=== PATIENT | male | born 1985 | race Caucasian/White ===

== ENCOUNTER → 2021-11-04 07:20 | Outpatient (BNVA) | payer OTHER, SELFPAY | PROVIDERS: PCP Internal Medicine; Referring Provider Internal Medicine; Visit Provider Physician Assistant | DX: R10.9 Unspecified abdominal pain (principal); R63.4 Abnormal weight loss; R21 Rash and other nonspecific skin eruption; R14.0 Abdominal distension (gaseous) | CPT/HCPCS: 99202 ==

== ENCOUNTER 2021-11-05 14:38 | Outpatient (REF) | payer OTHER, SELFPAY ==
[2021-11-05 14:55] LABS: MANUAL DIFF FLAG NO
[2021-11-05 15:24] LABS: Basophils Percent Auto 0.6 % (0-2); Eosinophils Absolute Auto 0.2 X10*3/uL (0.0-0.4); Hematocrit 46.4 % (42.0-52.0); Hemoglobin 15.9 g/dl (14.0-18.0); Imm Gran Abs Auto 0.01 X10*3/uL (0.00-0.03); Imm Gran Pct Auto 0.2 % (0.0-0.4); Lymphocytes Absolute Auto 1.6 X10*3/uL (1.2-4.9); Mean Corpuscular HGB Conc 34.3 g/dl (31.0-36.0); Mean Corpuscular Hemoglobin 30.2 pg (27.0-33.0); Mean Corpuscular Volume 88.2 fL (80.0-98.0); Mean Platelet Volume 9.7 fL (9.4-12.4); Monocytes Absolute Auto 0.5 X10*3/uL (0.1-1.2); Monocytes Percent Auto 9.9 % (2-11); Neutrophils Absolute Auto 2.9 x10*3/uL (2.0-8.3); Neutrophils Percent Auto 55.3 % (45-73); Platelet Count 275 X10*3/uL (160-400); Red Blood Count 5.26 X10*6/uL (4.60-5.80); Red Cell Distribution Width 12.5 % (11.0-16.0); White Blood Count 5.3 X10*3/uL (4.8-10.8)
[2021-11-05 15:55] LABS: Alanine Aminotransferase 28 U/L (0-40); Alkaline Phosphatase 112 U/L (39-117); Anion Gap 13 (12-20); Aspartate Amino Transferase 21 U/L (5-37); Bilirubin Total 1.1 mg/dL (0.0-1.0); Blood Urea Nitrogen 10 mg/dL (9-16); C Reactive Protein 0.25 mg/dL (< or = 0.50); Calcium 10.5 mg/dL (8.4-10.2); Carbon Dioxide 29 mmol/L (22-29); Chloride 101 mmol/L (96-108); Cholesterol 188 mg/dL; Estimated Glomerular Filt Rate > 60; Glucose Random 95 mg/dL (60-115); HDL Cholesterol 61 mg/dL; LDL Cholesterol Calculated 117 mg/dl; Potassium 4.2 mmol/L (3.3-5.1); Sodium 139 mmol/L (135-145); Total Protein 8.1 g/dL (6.5-8.0); Triglycerides 52 mg/dL
[2021-11-05 16:10] LABS: Thyroid Stimulating Hormone 1.03 uIU/mL (0.32-4.0)
[2021-11-05 16:20] LABS: Erythrocyte Sedimentation Rate 2 MM/HR (0-15); Folate 10.8 ng/mL (> or = 4.0); Vitamin B12 402 pg/mL (200-900)
[2021-11-09 22:47] LABS: Transglutaminase IgA <1.0 U/mL
[2021-11-10 13:36] LABS: Vitamin D 25-OH, D2 <4 ng/mL; Vitamin D 25-OH, D3 10 ng/mL; Vitamin D 25-OH, Total 10 ng/mL (30-100)
[2021-11-10 16:05] LABS: Endomysial IgA Antibody Negative (Negative)
== END 2021-11-05 14:39 | disposition home or self-care (01) ==
LOC: HO.LAB 14:38
PROVIDERS: Absent Provider Physician Assistant; PCP Internal Medicine; Visit Provider Internal Medicine
DX: Z00.00 Encounter for general adult medical examination without abnormal findings (principal); R63.4 Abnormal weight loss; R10.9 Unspecified abdominal pain; R11.0 Nausea; R19.7 Diarrhea, unspecified; K59.09 Other constipation; D64.9 Anemia, unspecified; L20.9 Atopic dermatitis, unspecified
CPT/HCPCS: 36415; 80053; 80061; 82306; 82607; 82746; 84443; 85025; 85652; 86140; 86231; 86364

== ENCOUNTER → 2021-11-23 08:27 | Outpatient (BNVA) | payer OTHER, SELFPAY | PROVIDERS: PCP Internal Medicine; Referring Provider Internal Medicine; Visit Provider Physician Assistant | DX: R14.0 Abdominal distension (gaseous) (principal); E55.9 Vitamin D deficiency, unspecified; L20.9 Atopic dermatitis, unspecified | CPT/HCPCS: 99212 ==

== ENCOUNTER 2022-10-14 08:27 | Outpatient (REF) | payer OTHER, SELFPAY ==
[2022-10-14 08:41] LABS: MANUAL DIFF FLAG NO
[2022-10-14 09:58] LABS: Basophils Absolute Auto 0.1 X10*3/uL (0.0-0.2); Basophils Percent Auto 0.9 % (0-2); Eosinophils Absolute Auto 0.2 X10*3/uL (0.0-0.4); Eosinophils Percent Auto 3.3 % (0-4); Hematocrit 42.4 % (42.0-52.0); Hemoglobin 14.4 g/dl (14.0-18.0); Imm Gran Abs Auto 0.01 X10*3/uL (0.00-0.03); Imm Gran Pct Auto 0.2 % (0.0-0.4); Lymphocytes Absolute Auto 1.8 X10*3/uL (1.2-4.9); Mean Corpuscular Hemoglobin 30.1 pg (27.0-33.0); Mean Corpuscular Volume 88.5 fL (80.0-98.0); Mean Platelet Volume 10.1 fL (9.4-12.4); Monocytes Absolute Auto 0.5 X10*3/uL (0.1-1.2); Monocytes Percent Auto 8.2 % (2-11); Neutrophils Absolute Auto 3.2 x10*3/uL (2.0-8.3); Neutrophils Percent Auto 55.4 % (45-73); Platelet Count 244 X10*3/uL (160-400); Red Blood Count 4.79 X10*6/uL (4.60-5.80); Red Cell Distribution Width 13.1 % (11.0-16.0); White Blood Count 5.7 X10*3/uL (4.8-10.8)
[2022-10-14 10:36] LABS: Alanine Aminotransferase 23 U/L (0-40); Albumin Level 4.7 g/dL (3.5-5.0); Alkaline Phosphatase 91 U/L (39-117); Anion Gap 12 (12-20); Aspartate Amino Transferase 25 U/L (5-37); Bilirubin Total 1.6 mg/dL (0.0-1.0); Blood Urea Nitrogen 17 mg/dL (9-16); Calcium 9.3 mg/dL (8.4-10.2); Carbon Dioxide 29 mmol/L (22-29); Chloride 102 mmol/L (96-108); Cholesterol 200 mg/dL; Estimated Glomerular Filt Rate > 60; Glucose Fasting 101 mg/dL (60-99); HDL Cholesterol 74 mg/dL; LDL Cholesterol Calculated 120 mg/dl; Potassium 4.1 mmol/L (3.3-5.1); Sodium 139 mmol/L (135-145); Total Protein 7.3 g/dL (6.5-8.0); Triglycerides 34 mg/dL
[2022-10-14 10:44] LABS: Thyroid Stimulating Hormone 1.01 uIU/mL (0.32-4.0)
== END 2022-10-14 08:28 | disposition home or self-care (01) ==
LOC: HO.LAB 08:27
PROVIDERS: Visit Provider Internal Medicine
DX: Z00.00 Encounter for general adult medical examination without abnormal findings (principal); R21 Rash and other nonspecific skin eruption; E55.9 Vitamin D deficiency, unspecified; R63.4 Abnormal weight loss
CPT/HCPCS: 36415; 80053; 80061; 82306; 84443; 85025

== ENCOUNTER 2022-11-14 10:07 | Outpatient (REF) | payer OTHER, SELFPAY ==
--- NOTE | ~2022-11-14 | XR_ITS ---
EXAMINATION: XR WRIST, LEFT CLINICAL INFORMATION: Pain COMPARISON: None available. TECHNIQUE: PA, lateral, and oblique views of the left wrist. FINDINGS: The bones and soft tissues are normal. No fracture. Alignment is anatomic with normal joint spaces. No erosions or abnormal soft tissue calcifications. XR/XR wrist LT min 3V IMPRESSION: Normal left wrist.
== END 2022-11-14 10:08 | disposition home or self-care (01) ==
LOC: HO.HOSX 10:07
PROVIDERS: Visit Provider Physician Assistant
DX: G56.01 Carpal tunnel syndrome, right upper limb (principal)
CPT/HCPCS: 73110; 99202

== ENCOUNTER 2023-01-11 08:51 | Outpatient (REF) | payer OTHER, SELFPAY ==
--- NOTE | 2023-01-11 08:45 | EMG_ITS ---
Please see scanned EMG / Nerve Conduction Report. MTDD
== END 2023-01-11 08:52 | disposition home or self-care (01) ==
LOC: HO.NEURO 08:51
PROVIDERS: PCP Internal Medicine; Visit Provider Physician Assistant
DX: G56.01 Carpal tunnel syndrome, right upper limb (principal)
CPT/HCPCS: 95885; 95913

== ENCOUNTER → 2023-01-24 14:58 | Outpatient (BNVA) | payer OTHER, SELFPAY | PROVIDERS: PCP Internal Medicine; Visit Provider Physician Assistant ==

== ENCOUNTER 2023-03-01 15:15 | Outpatient (AMB) | payer OTHER, SELFPAY ==
[2023-03-01 15:22] VITALS: BMI 21.1
--- NOTE | 2023-03-01 15:22 | MHC.OFFVIS ---
Intake Vital Signs 03/01/23 15:22 Height 5 ft 5 in Weight 127 lb BMI 21.1 Intake Visit Reasons: OV-Left wrist injection vs CTR Allergies latex [LATEX] Allergy (Mild, Verified 03/01/23 15:36) Skin irritation citalopram Allergy (Unknown, Verified 03/01/23 15:36) Depression Seasonal Allergies Allergy (Verified 03/01/23 15:36) Respiratory symptoms, runny nose PFSH Medical History Abdominal pain Abdominal pain, generalized Encounter for physical examination Hypovitaminosis D Nausea Weight loss Surgical History History of anal fissures History of shoulder surgery Family History Father Cancer Lung cancer Mother No problems noted. Maternal Grandmother Diabetes Maternal Uncle Diabetes Social History Housing: House Alcohol intake: former Year quit: 2010 Patient Tobacco Use Status: Never used Tobacco e-Cigarette/Vaping Use: Never Used Second Hand Smoke Exposure: No Substance Use Type: Marijuana service: No Current occupational status: employed Cognitive needs: No Hearing needs: No Vision needs: No Physical Exam Vital Signs: BMI result Body Mass Index 21.1 Coding Diagnoses
--- NOTE | 2023-03-01 15:22 | MHC.OFFVIS ---
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 States his right hand goes numbness mainly at night time and this begin about fall 2021. States numbness comes and goes. Left hand doesn't go numb often but has pain shooting up to his elbow. Patient seen by Eufemia Celis who would like patient to be evaluated by Dr. Abreu. Allergies latex [LATEX] Allergy (Mild, Verified 03/01/23 15:36) Skin irritation citalopram Allergy (Unknown, Verified 03/01/23 15:36) Depression Seasonal Allergies Allergy (Verified 03/01/23 15:36) Respiratory symptoms, runny nose HPI OV-Left wrist injection vs CTR HPI Details Roderick is a 37 year old right hand dominant man who presents primarily with complaints of left elbow pain He reports pain in his left elbow, mostly when straightening his elbow from being flexed or when gripping an object. He says his left elbow pain began with wrist pain in 07/2022, but this resolved shortly after wearing a brace. He has some mild intermittent and occasional tingling in his left hand, but this is not bothersome. He has numbness in the median nerve distribution of the right hand, intermittent and frequent throughout the week, worse with activities. 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 [facility] Medical History Abdominal pain Abdominal pain, generalized Encounter for physical examination Hypovitaminosis D Nausea Weight loss Surgical History History of anal fissures History of shoulder surgery Family History Father Cancer Lung cancer Mother No problems noted. Maternal Grandmother Diabetes Maternal Uncle Diabetes Social History Housing: House Alcohol intake: former Year quit: 2011 Patient Tobacco Use Status: Never used Tobacco e-Cigarette/Vaping Use: Never Used Second Hand Smoke Exposure: No Substance Use Type: Marijuana service: No Current occupational status: employed Cognitive needs: No Hearing needs: No Vision needs: No Review of Systems Const All systems reviewed & are unremarkable except as noted in HPI and below Physical Exam Vital Signs: BMI result Body Mass Index 21.1 Const General: cooperative, healthy appearing and no acute distress Orientation/consciousness: patient oriented x3 HEENT Head: Yes normocephalic and Yes atraumatic Eyes EOM: EOMs intact bilaterally Resp Effort & Inspection: normal respiratory effort and able to speak in complete sentences Cardio Jugular venous distension: no JVD Skin General skin exam: turgor normal Rashes: no rashes Neuro General: patient oriented x3 Extrem Other: Evaluation of Upper Extremity: The patient is alert, oriented, and in no acute distress Neuro: Median, Ulnar, Radial nerves motor and sensory intact and sensation is normal to the tips of all digits Vascular: Cap refill brisk ROM: He can make a fist and extend all his digits Skin: No lacerations or abrasions. General: No Ecchymosis. No Erythema or evidence of infection. Tenderness over the extensor origin of the lateral epicondyle Tenderness over the flexor origin of the medial epicondye Pain to lateral epicondyle with resisted wrist extension Pain to medial epicondyle with resisted wrist & finger extension No pain with resisted elbow flexion Biceps tendon not tender, I do not think he has biceps tendinitis Radiographs: 3 views of the left wrist from 11/15/22 were reviewed by me today in clinic. They show no fractures, dislocations, or arthritic changes Nerve Conduction Study: Impression Mild compression palsy of the median nerve at the wrist on the right consistent with early carpal tunnel syndrome. Normal study on the left. Normal EMG of the right C5-T1 innervated muscles. Dr. Obando 01/11/23 Psych Appearance: grossly normal Affect: normal affect Attitude: cooperative Assessment & Plan Assessment & Plan (1) Right carpal tunnel syndrome: Code(s): G56.01 - Carpal tunnel syndrome, right upper limb (2) Medial epicondylitis of left elbow: Code(s): M77.02 - Medial epicondylitis, left elbow (3) Left lateral epicondylitis: Code(s): M77.12 - Lateral epicondylitis, left elbow Plan Assessment & Plan: 1. Left medial epicondylitis 2. Left lateral epicondylitis I educated him about this condition No evidence of biceps tendinitis I discussed treatment options I recommend activity modification and OT I ordered OT hand therapy to work on normalizing function, stretching, and strengthening I discussed activity modification, he should limit or avoid any heavy gripping, lifting, or pulling activities, or activities that cause him pain I explained that this may take several months to fully resolve, and surgery is not a good treatment option 3. Right Carpal tunnel syndrome, early Symptoms intermittent, and almost daily, worse in the mornings I educated him about carpal tunnel syndrome and the risks of delaying treatment I suspect he will need a carpal tunnel release in the future He would like to consider possible operative treatment in the fall He will follow up in ~2-3 months to see how he is doing, and to discuss possible to carpal tunnel release Otherwise he can follow up prn Scribed for Jessica Abreu MD by Denzel Galindo, medical parasitologist, on 03/01/23 at 3:45 PM, EST. Orders: Orders OT Evaluation and Treatment Today M77.02 - Medial epicondylitis, left elbow, M77.12 - Lateral epicondylitis, left elbow Coding Level of Care Code New Pt Level 3 (67818) Diagnoses Right carpal tunnel syndrome G56.01 Medial epicondylitis of left elbow M77.02 Left lateral epicondylitis M77.12
== END 2023-03-01 15:48 | disposition home or self-care (01) ==
PROVIDERS: PCP Internal Medicine; Visit Provider Orthopaedic Surgery
DX: G56.01 Carpal tunnel syndrome, right upper limb (principal); M77.02 Medial epicondylitis, left elbow; M77.12 Lateral epicondylitis, left elbow
CPT/HCPCS: 99213

== ENCOUNTER → 2023-03-01 15:15 | Outpatient (BNVA) | payer OTHER, SELFPAY | PROVIDERS: PCP Internal Medicine; Visit Provider Orthopaedic Surgery | DX: G56.01 Carpal tunnel syndrome, right upper limb (principal); M77.02 Medial epicondylitis, left elbow; M77.12 Lateral epicondylitis, left elbow | CPT/HCPCS: 99212 ==

== ENCOUNTER 2023-04-18 11:06 | Outpatient (AMB) | payer OTHER, SELFPAY ==
[2023-04-18 11:19] VITALS: BP 110/70; PULSE 80; O2SAT 98; BMI 19.7
--- NOTE | 2023-04-18 11:19 | A.OFFPC_ITS ---
Vital Signs 04/18/23 11:19 Height 5 ft 5 in Weight 118 lb 6 oz BMI 19.7 BP 110/70 Blood Pressure Location Lt brachial Position Sitting Pulse 80 Pulse Source Pulse Oximeter Pulse Oximetry (%) 98 Oxygen Delivery Method Room Air Intake Visit Reasons: Chest tightness and pain. Weight lose. Intake Note: Pt is here for chest pain on the right upper side Monday & Monday being the worse day of pain. Also, concern on weight loss. 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 Required: No Accompanied by: Self / Same As Patient Allergies latex [LATEX] Allergy (Mild, Verified 04/18/23 11:41) Skin irritation citalopram Allergy (Unknown, Verified 04/18/23 11:41) Depression Seasonal Allergies Allergy (Verified 04/18/23 11:41) Respiratory symptoms, runny nose Medication List - Last Reconciled 04/18/23 by Sole Pryor MD cetirizine (Wal-Zyr (cetirizine)) 10 mg PO DAILY PRN cholecalciferol (vitamin D3) 50 mcg PO DAILY 90 days Tobacco use date assessed: 10/17/22 Dental Screening Dental Screen Date: 04/18/23 Did you have a dental visit in the last 12 months?: Yes Did you have a dental problem in the last 6 months where you did not have access to dental care?: No Was dental information given to patient?: Patient has dentist HPI HPI Comments History of Present Illness Details This is a 37-year-old male with allergic rhinitis and low vitamin-D that complains of weight loss that has been present for the past few months. Some polydipsia but no polyuria. Also complains of chest wall pain located in the right side of the chest that started about a month ago associated by taking deep breaths but the past week was tender to palpation and constant. Today is slightly better. He denies any previous trauma. Allergic rhinitis stable with antihistamines. On vitamin-D supplements for low vitamin-D. REPLACED BY [facility] Medical History (Updated 04/18/23 @ 12:31 by Sole Pryor MD) Abdominal pain Abdominal pain, generalized Encounter for physical examination Hypovitaminosis D Nausea Weight loss Surgical History History of anal fissures History of shoulder surgery Family History Father Cancer Lung cancer Mother No problems noted. Maternal Grandmother Diabetes Maternal Uncle Diabetes Social History Housing: House Alcohol intake: former Year quit: 2010 Patient Tobacco Use Status: Never used Tobacco e-Cigarette/Vaping Use: Never Used Second Hand Smoke Exposure: No Substance Use Type: Marijuana service: No Current occupational status: employed Cognitive needs: No Hearing needs: No Vision needs: No Questionnaire Thrive Questionnaire Date Thrive assessed: 10/17/22 PATRIA-7 AMB Questionnaire PATRIA-7 Date PATRIA - 7 assessed: 10/17/22 Source: Developed by Drs. Ton Watson, Eulalia De, Bola Burotn and colleagues, with an educational winston from [employer] Review of Systems Const All systems reviewed & are unremarkable except as noted in HPI and below Eyes Reports no additional complaints, Denies change in vision and Denies other visual disturbances Card Denies chest pain at rest, Denies chest pain with activity, Denies edema, Denies irregular heart rhythm, Denies claudication, Denies dyspnea, Denies dyspnea on exertion, Denies orthopnea, Denies paroxysmal nocturnal dyspnea and Denies slow heart rate Resp Denies cough, Denies dyspnea and Denies dyspnea on exertion GI Denies abdominal pain, Denies change in bowel habits, Denies excessive flatus, Denies nausea and Denies vomiting Denies urinary hesitancy, Denies urinary incontinence and Denies urinary urgency Musc Denies abnormal gait, Denies atrophy, Denies deformity and Denies limited range of motion Skin/Breast Denies bleeding lesions, Denies changing lesions and Denies rash Neuro Denies abnormal gait and Denies lack of coordination Physical exam (Primary Care) Vital Signs: Last Vital Signs Pulse 80 04/18/23 11:19 BP 110/70 04/18/23 11:19 Pulse Ox 98 04/18/23 11:19 Oxygen Delivery Method Room Air 04/18/23 11:19 BMI result Body Mass Index 19.7 Tobacco/Smoking Status: Tobacco use Status Tobacco use date assessed 10/17/22 04/18/23 11:24 Patient Tobacco Use Status Never used Tobacco 04/18/23 11:24 e-Cigarette/Vaping Use Never Used 04/18/23 11:24 Thrive Assessment: Date of Thrive Assessment Date Thrive assessed 10/17/22 04/18/23 11:24 Eyes General: appearance normal, both eyes and all related structures Eyelids: Yes eyelids normal Conjunctivae: conjunctivae normal Neck Neck: Yes normal visual inspection and Yes supple Resp Effort & Inspection: normal respiratory effort Auscultation: clear to auscultation bilaterally Cardio Jugular venous distension: no JVD Rate: regular rate Rhythm: regular rhythm Heart sounds: S1 normal heart sound present and S2 normal heart sound present Extrem General: Yes full ROM Assessment and Plan Assessment & Plan (1) Chest wall pain: Code(s): R07.89 - Other chest pain Plan: X-ray of the chest ordered. (2) Hypovitaminosis D: Comment: Continue vitamin supplement repeat D 3 months Code(s): E55.9 - Vitamin D deficiency, unspecified Plan: Continue vitamin-D supplements. (3) Allergic rhinitis: Code(s): J30.9 - Allergic rhinitis, unspecified Plan: Continue antihistamines as needed. (4) Weight loss: Comment: Weight stable however lost 30 lb over the past couple years-weight seems to be stable Code(s): R63.4 - Abnormal weight loss Plan: Labs ordered. Orders: Orders Comprehensive Page. Panel Fast Today R63.4 - Abnormal weight loss Thyroid Stimulating Hormone Today R63.4 - Abnormal weight loss Complete Blood Count Auto Diff Today R63.4 - Abnormal weight loss XR chest 2V Today R07.89 - Other chest pain Coding Level of Care Code Est Pt Level 4 (65036) Diagnoses Chest wall pain R07.89 Hypovitaminosis D E55.9 Allergic rhinitis J30.9 Weight loss R63.4 Time Spent (min) 20
== END 2023-04-18 11:51 | disposition home or self-care (01) ==
PROVIDERS: PCP Internal Medicine; Visit Provider Internal Medicine
DX: R07.89 Other chest pain (principal); E55.9 Vitamin D deficiency, unspecified; J30.9 Allergic rhinitis, unspecified; R63.4 Abnormal weight loss
CPT/HCPCS: 99214

== ENCOUNTER 2023-04-18 11:55 | Outpatient (REF) | payer OTHER, SELFPAY ==
--- NOTE | ~2023-04-18 | XR_ITS ---
EXAMINATION: XR CHEST CLINICAL INFORMATION: Chest pain COMPARISON: Chest radiograph from 06/02 TECHNIQUE: 2 views of the chest were obtained. FINDINGS: No focal consolidation. No pneumothorax. Trachea is midline. Cardiomediastinal silhouette is not enlarged. No large pleural effusion. Osseous structures are intact. Soft tissues are unremarkable. XR/XR chest 2V IMPRESSION: No acute cardiopulmonary process.
== END 2023-04-18 11:56 | disposition home or self-care (01) ==
LOC: HO.XRAY 11:55
PROVIDERS: PCP Internal Medicine; Visit Provider Internal Medicine
DX: R07.89 Other chest pain (principal)
CPT/HCPCS: 71046

== ENCOUNTER 2023-04-19 07:30 | Outpatient (RCR) | payer OTHER, SELFPAY ==
--- NOTE | 2023-03-29 07:57 | MHC.OT.EP ---
[address] [phone] Occupational Therapy Plan of Care Patient Name: Roderick Rodarte Date of Evaluation: 03/29/23 Diagnosis: Left lateral epicondylitis Pain Location: Left lateral elbow > medial elbow Pain free at rest, increases w/ extended gripping/activities Up to 8/10 sharp pain w/ heavy use Very mildly tender to touch Pain Score: 5 Pain Scale Used: Numeric (0 - 10) Aggravating Factors: Extended lifting/gripping Alleviating Factors: Tried biofreeze w/ some relief Assessment: 37 yo male presents w/ left elbow pain primarily with extended gripping, He also reports hx of clicking in left wrist w/ movement and weightbearing, but that has since relieved when wearing nighttime orthosis. He has been seen for B/L hand numbness and EMG shows early carpal tunnel on right, but no significant symptoms currently. On assessment, pain is localized to left elbow, lateral > medial but at times hard to pinpoint and no specific tenderness, some discomfort over dorsal wad. Range is WFL, B/L gross grasp is WFL, but tested w/ elbow extended is significantly decreased on left w/ onset of pain. He has good sense of body mechanics and has made adjustments w/ daily activities and work tasks, I expect he will do well w/ course of OT to address epicondylitis. Frequency and Duration: The patient will be seen 2x/wk for 4 weeks Short Term Goals: Ind w/ HEP Good follow through w/ CFB during daily activities Progress to eccentric exercises Half-Way Goals: Ind w/ progression of strengthening exercises Pt to demo lift and carry 30lb w/ ease Extended gross grasp to 50lb w/ ease Treatment Plan: Therapeutic Exercise Therapeutic Activity Home Exercise Program Splinting Patient Education ADL Training Ultrasound Iontophoresis MHP Cold Packs Soft Tissue Mobilization Kinesiotaping Ionto w/ Dexamethasone Nighttime wrist orthosis Electronically Signed By: Lyn Cade OTR/L Please Sign and return to therapist. Thank you once again for your referral.
--- NOTE | 2023-04-19 09:30 | MHC.OT.DC ---
[address] [phone] F: [phone] Occupational Therapy Discharge Note Patient Name: Roderick Rodarte Provider: Dr Jessica Abreu Diagnosis: Left lateral epicondylitis Date of Evaluation: 03/29/23 Date of Discharge: 04/19/23 Treatments to Date: 4 Discharge Status: Achieved Goals Improved Function Independent with HEP Discharge Summary: Roderick was referred to OT with onset of left latral epicondylitis. He has done very well w/ brief course of OT and has good follow through w/ HEP, counter force brace wear and activity modifications. He reports ease w/ activities and no significant pain or functional limitations noted recently, OT goals met. Electronically Signed By: Lyn Cade OTR/Chance CHT Reviewed/agree with student documentation: Therapist: Please Sign and return to therapist, thank you for your referral.
== END 2023-04-19 09:30 | disposition home or self-care (01) ==
LOC: HO.OT 07:30
PROVIDERS: PCP Internal Medicine; Visit Provider Orthopaedic Surgery
DX: M77.12 Lateral epicondylitis, left elbow (principal); M77.02 Medial epicondylitis, left elbow
CPT/HCPCS: 97033; 97110; 97165

== ENCOUNTER 2023-04-19 08:00 | Outpatient (REF) | payer OTHER, SELFPAY ==
[2023-04-19 08:12] LABS: MANUAL DIFF FLAG NO
[2023-04-19 08:58] LABS: Basophils Absolute Auto 0.1 X10*3/uL (0.0-0.2); Basophils Percent Auto 1.3 % (0-2); Eosinophils Absolute Auto 0.5 X10*3/uL (0.0-0.4); Eosinophils Percent Auto 7.2 % (0-4); Hematocrit 41.4 % (42.0-52.0); Hemoglobin 13.6 g/dl (14.0-18.0); Imm Gran Abs Auto 0.01 X10*3/uL (0.00-0.03); Imm Gran Pct Auto 0.2 % (0.0-0.4); Lymphocytes Absolute Auto 1.6 X10*3/uL (1.2-4.9); Lymphocytes Percent Auto 24.9 % (20-40); Mean Corpuscular HGB Conc 32.9 g/dl (31.0-36.0); Mean Corpuscular Hemoglobin 30.7 pg (27.0-33.0); Mean Corpuscular Volume 93.5 fL (80.0-98.0); Monocytes Absolute Auto 0.6 X10*3/uL (0.1-1.2); Monocytes Percent Auto 9.9 % (2-11); Neutrophils Absolute Auto 3.6 x10*3/uL (2.0-8.3); Neutrophils Percent Auto 56.5 % (45-73); Platelet Count 209 X10*3/uL (160-400); Red Blood Count 4.43 X10*6/uL (4.60-5.80); White Blood Count 6.3 X10*3/uL (4.8-10.8)
[2023-04-19 09:55] LABS: Alanine Aminotransferase 16 U/L (0-40); Albumin Level 4.4 g/dL (3.5-5.0); Alkaline Phosphatase 84 U/L (39-117); Anion Gap 11 (12-20); Aspartate Amino Transferase 22 U/L (5-37); Bilirubin Total 0.7 mg/dL (0.0-1.0); Blood Urea Nitrogen 16 mg/dL (9-16); Calcium 9.8 mg/dL (8.4-10.2); Carbon Dioxide 31 mmol/L (22-29); Chloride 102 mmol/L (96-108); Estimated Glomerular Filt Rate > 60; Glucose Fasting 86 mg/dL (60-99); Sodium 140 mmol/L (135-145); Total Protein 7.2 g/dL (6.5-8.0)
[2023-04-19 09:59] LABS: Thyroid Stimulating Hormone 1.52 uIU/mL (0.32-4.0)
== END 2023-04-19 08:01 | disposition home or self-care (01) ==
LOC: HO.LAB 08:00
PROVIDERS: PCP Internal Medicine; Visit Provider Internal Medicine
DX: R63.4 Abnormal weight loss (principal)
CPT/HCPCS: 36415; 80053; 84443; 85025

== ENCOUNTER 2023-06-13 09:44 | Outpatient (AMB) | payer OTHER, SELFPAY ==
--- NOTE | 2023-06-13 10:16 | A.OFFVIS_ITS ---
Intake Vital Signs 06/13/23 10:19 Height 5 ft 5 in Weight 118 lb BMI 19.6 Intake Visit Reasons: LATERAL/MEDIAL EPICONDYLITIS, L ELBOW Intake Note: Rene 38 yr old male presents today S/P OT for his left lateral and medial elbow epicondylitis. States he was D/C from O.T and was doing but then he felt his pain was returning. He has cont' to do his ROM exercise at home Allergies latex [LATEX] Allergy (Mild, Verified 06/13/23 10:19) Skin irritation citalopram Allergy (Unknown, Verified 06/13/23 10:19) Depression Seasonal Allergies Allergy (Verified 06/13/23 10:19) Respiratory symptoms, runny nose HPI LATERAL/MEDIAL EPICONDYLITIS, L ELBOW HPI Details Roderick is a 38 year old right hand dominant man who returns to discuss his numbness and tingling in his right hand. In regards to his right hand, he says he primarily has numbness when waking up and in the mornings, but he denies any numbness throughout the day and at night. He says his numbness occurs almost every day but he says this improved when wearing his brace. He thinks that if he did not wear a brace he would have numbness every day. Regarding his bilateral medial epicondylitis: He says his pain improved with OT and at-home exercises, and he was discharged from OT. He did notice that after he was discharged from OT he started to get more symptoms about his left elbow. He was unsure if that meant he should go back to OT. 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 [facility] Medical History Abdominal pain Abdominal pain, generalized Encounter for physical examination Hypovitaminosis D Nausea Weight loss Surgical History History of anal fissures History of shoulder surgery Family History Father Cancer Lung cancer Mother No problems noted. Maternal Grandmother Diabetes Maternal Uncle Diabetes Social History Housing: House Alcohol intake: former Year quit: 2010 Patient Tobacco Use Status: Never used Tobacco e-Cigarette/Vaping Use: Never Used Second Hand Smoke Exposure: No Substance Use Type: Marijuana service: No Current occupational status: employed Cognitive needs: No Hearing needs: No Vision needs: No Physical Exam Vital Signs: BMI result Body Mass Index 19.6 Extrem Other: Evaluation of Bilateral Upper Extremity: The patient is alert, oriented, and in no acute distress Neuro: Median, Ulnar, Radial nerves motor and sensory intact and sensation is normal to the tips of all digits today in clinic No thenar or intrinsic wasting Good APB muscle belly firing and good finger cross Vascular: Cap refill brisk ROM: He can make a fist and extend all his digits When I asked him where he was still hurting he fairly broadly demonstrated over the dorsal lateral aspect of his left elbow. Then he noted perhaps some discomfort over his biceps insertion and may be medially. In other words it was very generalized. Tenderness over the extensor origin of the lateral epicondyle Tenderness over the flexor origin of the medial epicondye No pain with resisted elbow flexion Some biceps tendon tenderness today Nerve Conduction Study: Impression Mild compression palsy of the median nerve at the wrist on the right consistent with early carpal tunnel syndrome. Normal study on the left. Normal EMG of the right C5-T1 innervated muscles. Dr. Obando 01/11/23 Assessment & Plan Assessment & Plan (1) Right carpal tunnel syndrome: Code(s): G56.01 - Carpal tunnel syndrome, right upper limb (2) Medial epicondylitis of left elbow: Code(s): M77.02 - Medial epicondylitis, left elbow (3) Left lateral epicondylitis: Code(s): M77.12 - Lateral epicondylitis, left elbow Plan Assessment & Plan: 1. Right Carpal tunnel syndrome, early Symptoms intermittent, and almost daily, worse in the mornings I educated him about this condition I discussed operative and non-operative treatment options The patient would like to proceed with surgery The risks and benefits of operative treatment were discussed with the patient and the patient wishes to proceed with surgery. These risks include, but are not limited to risk of damage to blood vessels, nerves, tendons, infection, recurrence, incomplete relief of preoperative symptoms, persistent pain, possible need for further surgery and the risks associated with regional blocks and anesthesia. The plan is to take the patient to the operating room sometime in the next few weeks for the following procedures: 1. Right carpal tunnel release, under local All of the preoperative paperwork including the consent was filled out today. All the patient's questions were answered. The patient understands that they will be contacted by our cat swamper ruth guo to schedule this procedure He denies Diabetes, blood thinners, asthma, heart, lung, kidney issues 2. Left medial epicondylitis 3. Left lateral epicondylitis I educated him about this condition This improved with rest, OT hand therapy, and bracing I discussed activity modification He should continue to work on stretching exercises at home, and wear his brace when symptomatic or with heavy activity Scribed for Jessica Abreu MD by Denzel Galindo, medical insurance clerk, on 06/13/23 at 10:25 AM, EST. Coding Level of Care Code Est Pt Level 4 (60805) Diagnoses Right carpal tunnel syndrome G56.01 Medial epicondylitis of left elbow M77.02 Left lateral epicondylitis M77.12
[2023-06-13 10:19] VITALS: BMI 19.6
== END 2023-06-13 10:37 | disposition home or self-care (01) ==
PROVIDERS: PCP Internal Medicine; Visit Provider Orthopaedic Surgery
DX: G56.01 Carpal tunnel syndrome, right upper limb (principal); M77.02 Medial epicondylitis, left elbow; M77.12 Lateral epicondylitis, left elbow
CPT/HCPCS: 99214

== ENCOUNTER → 2023-06-13 09:44 | Outpatient (BNVA) | payer OTHER, SELFPAY | PROVIDERS: PCP Internal Medicine; Visit Provider Orthopaedic Surgery | DX: M77.02 Medial epicondylitis, left elbow (principal); M77.12 Lateral epicondylitis, left elbow; G56.01 Carpal tunnel syndrome, right upper limb | CPT/HCPCS: 99212 ==

== ENCOUNTER 2023-11-27 13:09 | Outpatient (REF) | payer OTHER, SELFPAY ==
[2023-11-27 13:22] LABS: MANUAL DIFF FLAG NO
[2023-11-27 14:10] LABS: Basophils Absolute Auto 0.1 X10*3/uL (0.0-0.2); Basophils Percent Auto 0.9 % (0-2); Eosinophils Absolute Auto 0.3 X10*3/uL (0.0-0.4); Eosinophils Percent Auto 3.7 % (0-4); Hematocrit 38.4 % (42.0-52.0); Hemoglobin 13.1 g/dl (14.0-18.0); Imm Gran Abs Auto 0.02 X10*3/uL (0.00-0.03); Imm Gran Pct Auto 0.3 % (0.0-0.4); Lymphocytes Absolute Auto 2.5 X10*3/uL (1.2-4.9); Lymphocytes Percent Auto 37.2 % (20-40); Mean Corpuscular HGB Conc 34.1 g/dl (31.0-36.0); Mean Corpuscular Hemoglobin 31.6 pg (27.0-33.0); Mean Corpuscular Volume 92.8 fL (80.0-98.0); Mean Platelet Volume 9.9 fL (9.4-12.4); Monocytes Absolute Auto 0.4 X10*3/uL (0.1-1.2); Monocytes Percent Auto 6.1 % (2-11); Neutrophils Absolute Auto 3.5 x10*3/uL (2.0-8.3); Neutrophils Percent Auto 51.8 % (45-73); Platelet Count 252 X10*3/uL (160-400); Red Blood Count 4.14 X10*6/uL (4.60-5.80); White Blood Count 6.7 X10*3/uL (4.8-10.8)
[2023-11-27 14:47] LABS: Alanine Aminotransferase 31 U/L (0-40); Albumin Level 4.5 g/dL (3.5-5.0); Alkaline Phosphatase 76 U/L (39-117); Anion Gap 13 (12-20); Aspartate Amino Transferase 25 U/L (5-37); Bilirubin Total 0.7 mg/dL (0.0-1.0); Blood Urea Nitrogen 16 mg/dL (9-16); Calcium 9.8 mg/dL (8.4-10.2); Carbon Dioxide 29 mmol/L (22-29); Chloride 104 mmol/L (96-108); Estimated Glomerular Filt Rate > 60; Glucose Fasting 87 mg/dL (60-99); Potassium 3.5 mmol/L (3.3-5.1); Sodium 142 mmol/L (135-145); Total Protein 7.3 g/dL (6.5-8.0)
[2023-11-27 15:02] LABS: Thyroid Stimulating Hormone 0.68 uIU/mL (0.32-4.0); Vitamin D 25-OH Total 66.4 ng/mL (>30)
== END 2023-11-27 13:10 | disposition home or self-care (01) ==
LOC: HO.LAB 13:09
PROVIDERS: PCP Internal Medicine; Visit Provider Internal Medicine
DX: R53.83 Other fatigue (principal); E55.9 Vitamin D deficiency, unspecified
CPT/HCPCS: 36415; 80053; 82306; 84443; 85025

== ENCOUNTER 2024-02-07 13:04 | Outpatient (AMB) | payer OTHER, SELFPAY ==
--- NOTE | 2024-02-07 13:18 | MHC.OFFVIS ---
Vital Signs 02/07/24 14:23 Height 5 ft 5 in Weight 120 lb BMI 20.0 Handedness Right Intake Visit Reasons: New Prob - B/L wrist pain Intake Note: Roderick is a 38 year old right hand dominant male who presents today for a new problem with bilateral wrist pain. Right side worse than left. He would like to discuss surgical treatment. Allergies latex [LATEX] Allergy (Mild, Verified 02/07/24 14:24) Skin irritation citalopram Allergy (Unknown, Verified 02/07/24 14:24) Depression Seasonal Allergies Allergy (Verified 02/07/24 14:24) Respiratory symptoms, runny nose HPI HPI New Prob - B/L wrist pain : Details: Roderick is a 38 year old right hand dominant man who returns to discuss his right carpal tunnel syndrome He has right carpal tunnel syndrome. He consented to a carpal tunnel release last year but this did not happen. He complains of numbness primarily in the thumb & index finger. Symptoms intermittent but daily, worse at night or with activities. He is no longer finding relief from wearing a night brace. He also complains of new numbness in the left thumb, index, and middle fingers. 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 Maternal Grandmother Diabetes Maternal Uncle Diabetes Social History Housing: House Alcohol intake: former Year quit: 2010 Patient Tobacco Use Status: Never used Tobacco e-Cigarette/Vaping Use: Never Used Second Hand Smoke Exposure: No Substance Use Type: Marijuana service: No Current occupational status: employed Cognitive needs: No Hearing needs: No Vision needs: No Review of Systems Const All systems reviewed & are unremarkable except as noted in HPI and below Physical Exam Vital Signs: BMI result Body Mass Index 20.0 Const General: alert Orientation/consciousness: patient oriented x3 Neuro General: patient oriented x3 Extrem Other: Evaluation of Right Upper Extremity: The patient is alert & oriented. He became mildly anxious and distressed today in clinic when discussing surgery, having a vasovagal response and an incident of vomiting. He did not pass out. Neuro: Median, Ulnar, Radial nerves motor and sensory intact and sensation is normal to the tips of all digits today in clinic No thenar or intrinsic wasting Good APB muscle belly firing and good finger cross Vascular: Cap refill brisk ROM: He can make a fist and extend all his digits No locking or catching Nerve Conduction Study: Impression Mild compression palsy of the median nerve at the wrist on the right consistent with early carpal tunnel syndrome. Normal study on the left. Normal EMG of the right C5-T1 innervated muscles. Dr. Obando 01/11/23 Psych Appearance: grossly normal Affect: normal affect Attitude: cooperative Assessment & Plan Assessment & Plan (1) Right carpal tunnel syndrome: Code(s): G56.01 - Carpal tunnel syndrome, right upper limb Category: Medical (2) Numbness and tingling in left hand: Code(s): R20.0 - Anesthesia of skin; R20.2 - Paresthesia of skin Category: Medical Plan Assessment & Plan: 1. Right Carpal tunnel syndrome, early Symptoms intermittent, but daily, worse at night or with activities Primarily affecting the thumb & index finger I educated him about this condition I discussed operative and non-operative treatment options. He became mildly anxious and distressed today in clinic when discussing surgery, having a vasovagal response and an incident of vomiting. The patient would like to proceed with surgery The risks and benefits of operative treatment were discussed with the patient and the patient wishes to proceed with surgery. These risks include, but are not limited to risk of damage to blood vessels, nerves, tendons, infection, recurrence, incomplete relief of preoperative symptoms, persistent pain, possible need for further surgery and the risks associated with regional blocks and anesthesia. The plan is to take the patient to the operating room sometime in the next few weeks for the following procedures: 1. Right carpal tunnel release, under local All of the preoperative paperwork including the consent was reviewed today. All the patient's questions were answered. The patient understands that they will be contacted by our computer processing scheduler soon to schedule this procedure He denies Diabetes, blood thinners, asthma, heart, lung, kidney issues Please note that patient has history of passing out with blood draws and injections. 2. Left hand numbness In the median nerve distribution Symptoms intermittent, but daily, worse at night Previous nerve conduction study negative. I ordered a new NCS to assess for peripheral nerve compression He will follow up when completed for review 3. Left medial epicondylitis 4. Left lateral epicondylitis Resolved. Scribed for Jessica Abreu MD by ra Escudero scribe, on 02/07/24 at 2:15 PM, EST. Orders: Orders NE nerve conduction velocity Today R20.0 - Anesthesia of skin, R20.2 - Paresthesia of skin Scribe Plan - Not visible on output: Scribed for Jessica Abreu MD by ra Escudero scribe, on [ ] at [ ], EST. Coding Level of Care Code Est Pt Level 4 (56426) Diagnoses Right carpal tunnel syndrome G56.01 Numbness and tingling in left hand R20.0; R20.2
== END 2024-02-07 14:44 | disposition home or self-care (01) ==
PROVIDERS: PCP Internal Medicine; Visit Provider Orthopaedic Surgery
DX: G56.01 Carpal tunnel syndrome, right upper limb (principal); R20.0 Anesthesia of skin; R20.2 Paresthesia of skin
CPT/HCPCS: 99214

== ENCOUNTER → 2024-02-07 13:04 | Outpatient (BNVA) | payer OTHER, SELFPAY | PROVIDERS: PCP Internal Medicine; Visit Provider Orthopaedic Surgery | DX: G56.01 Carpal tunnel syndrome, right upper limb (principal); M25.532 Pain in left wrist; R20.0 Anesthesia of skin; R20.2 Paresthesia of skin | CPT/HCPCS: 99212 ==

== ENCOUNTER 2024-02-14 12:56 | Outpatient (REF) | payer OTHER, SELFPAY ==
--- NOTE | 2024-02-14 12:59 | EMG_ITS ---
Chief complaint: Numbness mainly on left 1st to 3rd digits History of Carpal Tunnel Syndrome on right, scheduled for Carpal Tunnel Syndrome surgery on right. Reason for referral: Evaluate for left Carpal Tunnel Syndrome Referred by: Dr. Abreu Procedure done: Left upper extremity NCS/EMG Precautions and/or limitations: None The limb temperature was monitored continuously and remained between 32-36 degrees C during the performance of the NCS. Nerve Conduction Studies Anti Sensory Summary Table ?Stim Site NR Onset (ms) Norm Onset (ms) Peak (ms) Norm Peak (ms) O-P Amp (?V) Norm O-P Amp Site1 Site2 Delta-0 (ms) Dist (cm) Eliel (m/s) Norm Eliel (m/s) Left Median Anti Sensory (2nd Digit) Wrist ? 3.1 4.0 <3.6 14.5 >10 Wrist 2nd Digit 3.1 14.0 45 Left Radial Anti Sensory (Thumb) Forearm ? 1.8 2.2 <3.1 37.2 Forearm Thumb 1.8 0.0 Left Ulnar Anti Sensory (5th Digit) Wrist ? 2.2 3.0 <3.7 55.0 >15.0 Wrist 5th Digit 2.2 14.0 64 Motor Summary Table ?Stim Site NR Onset (ms) Norm Onset (ms) O-P Amp (mV) Norm O-P Amp iAmp (mV) Amp (1st) (%) Site1 Site2 Delta-0 (ms) Dist (cm) Eliel (m/s) Norm Eliel (m/s) Left Median Motor (Abd Poll Brev) Wrist ? 4.1 <3.9 16.3 >4.5 18.6 100.0 Elbow Wrist 3.7 20.5 55 >45 Elbow ? 7.8 15.9 18.4 97.5 Left Ulnar Motor (Abd Dig Minimi) Wrist ? 2.9 <3.0 10.0 >5 12.1 100.0 B Elbow Wrist 3.1 18.5 60 >45 B Elbow ? 6.0 9.4 11.4 94.0 A Elbow B Elbow 1.6 10.0 63 >45 A Elbow ? 7.6 9.3 11.2 93.0 EMG ?Side Muscle Nerve Root Ins Act Fibs Psw Amp Dur Poly Recrt Int Pat Comment Left 1stDorInt Ulnar C8-T1 Nml Nml Nml Nml Nml 0 Nml Complete Left FlexCarRad Median C6-7 Nml Nml Nml Nml Nml 0 Nml Complete Left Biceps Musculocut C5-6 Nml Nml Nml Nml Nml 0 Nml Complete Left Triceps Radial C6-7-8 Nml Nml Nml Nml Nml 0 Nml Complete Left Deltoid Axillary C5-6 Nml Nml Nml Nml Nml 0 Nml Complete FINDINGS: Left median motor nerve showed prolonged distal latency, normal amplitude and normal conduction velocity. Left median sensory nerve showed prolonged peak latency. All other nerves tested were within normal. Concentric needle EMG was performed in selected muscles of the left upper extremity. Study did not reveal signs of electric abnormalities as shown in the table above. IMPRESSION: 1. This is an abnormal study. 2. There is electrodiagnostic evidence for left moderate-severe median neuropathy at the wrist, consistent with carpal tunnel syndrome. 3. There is no electrodiagnostic evidence for ulnar neuropathy, brachial plexopathy, or cervical radiculopathy. Thank you for your kind referral. Lois Moraes MD, DOM Board Certified, [place] Board [employer] and [employer] (ABPMR) Board Certified, [place] Board [employer] Electrodiagnostic Medicine (ABEM) [place] [id number] [facility]
== END 2024-02-14 12:57 | disposition home or self-care (01) ==
LOC: HO.NEURO 12:56
PROVIDERS: PCP Internal Medicine; Visit Provider Orthopaedic Surgery
DX: R20.0 Anesthesia of skin (principal); R20.2 Paresthesia of skin
CPT/HCPCS: 95886; 95909

== ENCOUNTER → 2024-02-14 12:59 | Outpatient (BNV) | payer OTHER, SELFPAY | PROVIDERS: PCP Internal Medicine; Visit Provider Physical Medicine & Rehabilitation | DX: G56.02 Carpal tunnel syndrome, left upper limb (principal); G56.12 Other lesions of median nerve, left upper limb | CPT/HCPCS: 95886; 95909 ==

== ENCOUNTER 2024-02-27 16:17 | Outpatient (AMB) | payer OTHER, SELFPAY ==
--- NOTE | 2024-02-27 16:20 | MHC.PC.OV ---
Vital Signs 02/27/24 16:21 Height 5 ft 5 in Weight 123 lb BMI 20.5 BP 120/70 Blood Pressure Location Lt brachial Position Sitting Intake Visit Reasons: PE Intake Note: Patient here for a physical exam Stud Driver Required: No Accompanied by: Self / Same As Patient Allergies latex [LATEX] Allergy (Mild, Verified 02/27/24 16:38) Skin irritation citalopram Allergy (Unknown, Verified 02/27/24 16:38) Depression Seasonal Allergies Allergy (Verified 02/27/24 16:38) Respiratory symptoms, runny nose Medication List - Last Reconciled 02/27/24 by Sole Pryor MD cetirizine (Wal-Zyr (cetirizine)) 10 mg PO DAILY PRN Tobacco use date assessed: 02/27/24 Dental Screening Dental Screen Date: 02/27/24 Did you have a dental visit in the last 12 months?: Yes Did you have a dental problem in the last 6 months where you did not have access to dental care?: No Was dental information given to patient?: Patient has dentist HPI HPI Comments History of Present Illness Details This is a 38-year-old male that comes for his physical exam. Complains of loss of libido and was asking about testing for testosterone. No other acute complaint. [facility] Medical History (Updated 02/27/24 @ 16:47 by Sole Pryor MD) Hypovitaminosis D Weight loss Abdominal pain Abdominal pain, generalized Encounter for physical examination Nausea Surgical History History of anal fissures History of shoulder surgery Family History (Updated 02/27/24 @ 16:42 by Sole Pryor MD) Father Cancer Lung cancer, Onset Age: 50 Stroke Mother No problems noted. Maternal Grandmother Diabetes Maternal Uncle Diabetes Social History Housing: House Alcohol intake: former Year quit: 2010 Patient Tobacco Use Status: Never used Tobacco e-Cigarette/Vaping Use: Never Used Second Hand Smoke Exposure: No Substance Use Type: Marijuana service: No Current occupational status: employed Cognitive needs: No Hearing needs: No Vision needs: No Questionnaire PHQ-9 Over the last 2 weeks, how often have you been bothered by any of the following problems? 1. Little interest or pleasure in doing things: not at all 2. Feeling down, depressed, or hopeless: not at all 3. Trouble falling or staying asleep, or sleeping too much: not at all 4. Feeling tired or having little energy: not at all 5. Poor appetite or overeating: not at all 6. Feeling bad about yourself - or that you are a failure or have let yourself or your family down: not at all 7. Trouble concentrating on things, such as reading the newspaper or watching television: not at all 8. Moving or speaking so slowly that other people could have noticed. Or the opposite - being so fidgety or restless that you have been moving around a lot more than usual: not at all 9. Thoughts that you would be better off or of hurting yourself in some way: not at all Total score: 0 Depression Screening Interpretation: Negative Depression Screening Done: Yes 97418 - PHQ-9 Billing: Yes Source: Developed by Drs. Ton Watson, Eulalia De, Bola Burton and colleagues, with an educational winston from [employer]. Thrive Questionnaire Date Thrive assessed: 02/27/24 I am a: Patient What is your living situation today?: I have a steady place to live Within the past 12 months, did the food you bought not last and you didn't have the money to get more?: Never true Within the past 12 months, did you worry whether your food would run out before you got money to buy more?: Never true Do you have trouble paying for medicines?: No Do you have trouble getting transportation to medical appointments?: No Do you have trouble paying your heating and electricity bill?: No Do you have trouble taking care of your child, family member or friend?: No Do you have trouble with day-to-day activities such as bathing, preparing meals, shopping, managing finances, etc.?: No Are you currently unemployed and looking for a job?: No Are you interested in more education?: No Please select the resources that you would like help with: None Currently or been in a relationship where the following occur: No concerns reported THRIVE Score: 0 AUDIT C Alcohol Use Questionnaire (AUDIT-C) 1. How often do you have a drink containing alcohol?: Never Total Score: 0 Score Reviewed/Action Taken: No PATRIA-7 AMB Questionnaire PATRIA-7 Date PATRIA - 7 assessed: 02/27/24 Feeling nervous, anxious, or on edge: 0 = Not at all Not being able to stop or control worryin = Not at all Worrying too much about different things: 0 = Not at all Trouble relaxin = Not at all Being so restless that it is hard to sit still: 0 = Not at all Becoming easily annoyed or irritable: 0 = Not at all Feeling afraid as if something awful might happen: 0 = Not at all Total PATRIA-7 score (0-4 normal; 5-9 mild; 10-14 moderate; 15-21 severe): 0 Source: Developed by Drs. Ton Watson, Eulalia De, Bola Burton and colleagues, with an educational winston from [employer]. PATRIA-7 Assessment Billing PATRIA-7 Assessment Tool: PATRIA-7 Assessment 88932 Review of Systems Const All systems reviewed & are unremarkable except as noted in HPI and below Card Denies chest pain at rest, Denies chest pain with activity, Denies edema, Denies irregular heart rhythm, Denies claudication, Denies dyspnea, Denies dyspnea on exertion, Denies orthopnea, Denies paroxysmal nocturnal dyspnea and Denies slow heart rate Resp Denies cough, Denies dyspnea and Denies dyspnea on exertion Physical exam (Primary Care) Vital Signs: Last Vital Signs BP 120/70 02/27/24 16:21 BMI result Body Mass Index 20.5 Tobacco/Smoking Status: Tobacco use Status Tobacco use date assessed 02/27/24 02/27/24 16:28 Patient Tobacco Use Status Never used Tobacco 02/27/24 16:28 e-Cigarette/Vaping Use Never Used 02/27/24 16:28 PHQ-9: PHQ-9 Score PHQ-9: Total score 0 02/27/24 16:28 Depression Screening Interpretation: Negative Thrive Assessment: Date of Thrive Assessment Date Thrive assessed 02/27/24 02/27/24 16:28 Currently or been in a relationship where the following occur: No concerns reported HENMT Head: Yes normal to inspection, Yes normocephalic and Yes atraumatic Ears: external ears normal Eyes General: appearance normal, both eyes and all related structures Eyelids: Yes eyelids normal Conjunctivae: conjunctivae normal Neck Neck: Yes normal visual inspection and Yes supple Resp Effort & Inspection: normal respiratory effort Auscultation: clear to auscultation bilaterally Cardio Jugular venous distension: no JVD Rate: regular rate Rhythm: regular rhythm Heart sounds: S1 normal heart sound present and S2 normal heart sound present GI Inspection: Yes normal to inspection Palpation (GI): Soft to palpation and nontender Auscultation: normal bowel sounds Skin General skin exam: no rashes or lesions noted Neuro General: no focal motor deficits Extrem General: Yes full ROM Psych Appearance: grossly normal Assessment and Plan Assessment & Plan (1) Encounter for physical examination: Code(s): Z00.00 - Encounter for general adult medical examination without abnormal findings Plan: Repeat in a year. (2) Loss of libido: Code(s): R68.82 - Decreased libido Plan: Testosterone levels ordered. Orders: Orders Testosterone, Free/Total Today R53.83 - Other fatigue, R68.82 - Decreased libido Coding Level of Care Code Est Pt Level 3 (52716) Est Pt Prev Care 18-39y(28376) Diagnoses Encounter for physical examination Z00.00 Loss of libido R68.82 Additional Codes PATRIA-7 Assessment Billing - PATRIA-7 Assessment Tool: PATRIA-7 Assessment 83502 ([id number]) Time Spent (min) 32
[2024-02-27 16:21] VITALS: BP 120/70; BMI 20.5
== END 2024-02-27 16:49 | disposition home or self-care (01) ==
PROVIDERS: PCP Internal Medicine; Visit Provider Internal Medicine
DX: Z00.00 Encounter for general adult medical examination without abnormal findings (principal); R68.82 Decreased libido
CPT/HCPCS: 99395

== ENCOUNTER 2024-03-06 08:27 | Outpatient (REF) | payer OTHER, SELFPAY ==
[2024-03-06 08:54] LABS: MANUAL DIFF FLAG NO
[2024-03-06 09:32] LABS: Basophils Absolute Auto 0.1 X10*3/uL (0.0-0.2); Basophils Percent Auto 1.1 % (0-2); Eosinophils Absolute Auto 0.3 X10*3/uL (0.0-0.4); Eosinophils Percent Auto 4.7 % (0-4); Hematocrit 42.5 % (42.0-52.0); Hemoglobin 14.5 g/dl (14.0-18.0); Imm Gran Abs Auto 0.01 X10*3/uL (0.00-0.03); Imm Gran Pct Auto 0.2 % (0.0-0.4); Lymphocytes Absolute Auto 1.8 X10*3/uL (1.2-4.9); Lymphocytes Percent Auto 26.9 % (20-40); Mean Corpuscular HGB Conc 34.1 g/dl (31.0-36.0); Mean Corpuscular Hemoglobin 31.8 pg (27.0-33.0); Mean Corpuscular Volume 93.2 fL (80.0-98.0); Mean Platelet Volume 10.4 fL (9.4-12.4); Monocytes Absolute Auto 0.4 X10*3/uL (0.1-1.2); Monocytes Percent Auto 5.9 % (2-11); Neutrophils Absolute Auto 4.1 x10*3/uL (2.0-8.3); Neutrophils Percent Auto 61.2 % (45-73); Platelet Count 215 X10*3/uL (160-400); Red Blood Count 4.56 X10*6/uL (4.60-5.80); Red Cell Distribution Width 12.2 % (11.0-16.0); White Blood Count 6.7 X10*3/uL (4.8-10.8)
[2024-03-06 10:02] LABS: Iron 105 mcg/dL (45-160); Percent Iron Saturation 32 % (15-50); Total Iron Binding Capacity 327 mcg/dL (228-428); Unsaturated Iron Binding 222 ug/dL
[2024-03-06 11:32] LABS: Folate 11.9 ng/mL (> or = 4.0); Vitamin B12 762 pg/mL (200-900)
[2024-03-11 00:53] LABS: Testosterone, Free 52.7 pg/mL (35.0-155.0); Testosterone, Total 798 ng/dL (250-1100)
== END 2024-03-06 08:28 | disposition home or self-care (01) ==
LOC: HO.LAB 08:27
PROVIDERS: PCP Internal Medicine; Visit Provider Internal Medicine
DX: D64.9 Anemia, unspecified (principal); E53.8 Deficiency of other specified B group vitamins; R53.83 Other fatigue; R68.82 Decreased libido
CPT/HCPCS: 36415; 82607; 82746; 83540; 84402; 84403; 85025

== ENCOUNTER 2024-04-22 11:24 | Day surgery (SDC) | payer BC, SELFPAY ==
[2024-04-22 13:38] VITALS: BMI 20.6
--- NOTE | 2024-04-22 14:02 | MHC.SHP ---
Pre-Procedural Eval Section A - 24 Hr Update-Section A only Date of Service: 04/22/24 The patient is an INPATIENT: No Changes since office visit: No Cold of Flu in the past 2 weeks, No New Medical Problems, No Changes in Medication and No Patient answered all questions The patient has been examined within 24 hours of the surgical procedure. The History & Physical has been completed within 30 days and I have reviewed it.: Yes Section B - Complete if H&P > 30 days Chief Complaint: Carpal tunnel syndrome, right upper limb Allergies: Allergies Allergy/AdvReac Type Severity Reaction Status Date / Time latex [LATEX] Allergy Mild Skin Verified 02/27/24 16:38 irritation citalopram Allergy Unknown Depression Verified 02/27/24 16:38 Seasonal Allergies Allergy Respiratory Verified 02/27/24 16:38 symptoms, runny nose Plan Diagnosis/Plan: Unchanged I have reviewed the history and physical and performed a pertinent physical examination on my patient. No changes have occurred unless specified. Time Spent With Patient Time: Total time managing care of this patient today ____ minutes.
--- NOTE | 2024-04-22 14:11 | P.OP_ITS ---
Operative Note Operative Note Date of Service: 04/22/24 Narrative: Preop diagnosis: 1. Right Carpal tunnel syndrome Postop diagnosis: same Procedure: 1. Right Carpal tunnel release Surgeon: Jessica Abreu MD Soaping Department Supervisor: None Anesthesia: local block using 1% lidocaine with epinephrine Findings: Thickened transverse carpal ligament. EBL: Less than 5 mL Specimens: None Complications: None Disposition: Brought to recovery room in stable condition Plan: Follow-up for 10-14 days for wound check and suture removal Indications: The patient is 38 years old, with right carpal tunnel syndrome that has been unresponsive to nonoperative management. The risks and benefits of operative treatment including but not limited to risk of damage to blood vessels, nerves, tendons, infection, persistent pain, persistent symptoms, or possible need for additional surgery were discussed with the patient and the patient wishes to proceed with surgery. Procedure: Once consent was obtained a local block was performed using a combination of 1% lidocaine with epinephrine. The patient was then brought back to the operating suite and placed on the operative table in supine position. The right upper extremity was prepped and draped in a standard surgical fashion. Once assured that we had a good block, a 2.0 cm longitudinal incision was made centered over the carpal tunnel. The incision was made through the skin to the subcutaneous tissues using a #15 blade. Dissection was made down to the level of the transverse carpal ligament with care being taken to protect the palmar cutaneous nerve. Once the transverse carpal ligament was clearly visualized, a longitudinal incision was made in the transverse carpal ligament 1st using a #15 blade, then using tenotomy scissors under direct visualization. Care was taken to look for and protect the motor branch of the median nerve when seen in this area. Once satisfied with our carpal tunnel release the wound was copiously irrigated with normal saline and hemostasis was obtained with a brief period of local pressure. The skin edges were reapproximated with some 5.0 nylon suture material and a sterile dressing was applied. The patient appears to have tolerated the procedure well and with no complic ations. All digits were well vascularized at the conclusion of the case.
[2024-04-22 15:29] VITALS: BP 133/68; PULSE 75; RESP 16; O2SAT 98
== END 2024-04-22 15:28 | disposition home or self-care (01) ==
PROVIDERS: PCP Internal Medicine; Visit Provider Orthopaedic Surgery
PROC: (CPT 64721; principal; 2024-04-22 13:20)
DX: G56.01 Carpal tunnel syndrome, right upper limb (principal); R20.0 Anesthesia of skin; R20.2 Paresthesia of skin; J30.2 Other seasonal allergic rhinitis; E55.9 Vitamin D deficiency, unspecified; Z88.8 Allergy status to other drugs, medicaments and biological substances; Z91.040 Latex allergy status
CPT/HCPCS: 64721; J0171

== ENCOUNTER → 2024-04-22 11:24 | Outpatient (BNV) | payer BC, SELFPAY | PROVIDERS: PCP Internal Medicine; Visit Provider Orthopaedic Surgery | DX: G56.01 Carpal tunnel syndrome, right upper limb (principal) | CPT/HCPCS: 64721 ==

== ENCOUNTER 2024-05-01 14:42 | Outpatient (AMB) | payer BC, SELFPAY ==
--- NOTE | 2024-05-01 14:44 | MHC.OFFVIS ---
Vital Signs 05/01/24 14:53 Height 5 ft 4 in Weight 120 lb BMI 20.6 Intake Visit Reasons: PO RT CTR 04/18/24 AR Intake Note: Roderick a 38 year old male who presents today for a post operative right CTR on 04/18/24 AR. Patient reports he is doing well, states improvement in his numbness or tingling. Allergies latex [LATEX] Allergy (Mild, Verified 05/01/24 14:51) Skin irritation citalopram Allergy (Unknown, Verified 05/01/24 14:51) Depression Seasonal Allergies Allergy (Verified 05/01/24 14:51) Respiratory symptoms, runny nose HPI HPI PO RT CTR 04/18/24 AR: Details: The patient is a 38-year-old male who returns to the office today for postoperative right carpal tunnel repair on 04/18/2024 AR. He states he does notice some mild numbness and tingling in the fingers, but nothing worrisome. He is otherwise doing well since the carpal tunnel surgery. He has been very careful about bending and stretching with the arms. [facility] Medical History Hypovitaminosis D Weight loss Abdominal pain Abdominal pain, generalized Encounter for physical examination Nausea Surgical History History of anal fissures History of shoulder surgery Family History (Updated 02/27/24 @ 16:42 by Sole Pryor MD) Father Cancer Lung cancer, Onset Age: 50 Stroke Mother No problems noted. Maternal Grandmother Diabetes Maternal Uncle Diabetes Social History Housing: House Alcohol intake: former Year quit: 2010 Patient Tobacco Use Status: Never used Tobacco e-Cigarette/Vaping Use: Never Used Second Hand Smoke Exposure: No Substance Use Type: Marijuana service: No Current occupational status: employed Cognitive needs: No Hearing needs: No Vision needs: No Review of Systems Const All systems reviewed & are unremarkable except as noted in HPI and below Physical Exam Vital Signs: BMI result Body Mass Index 20.6 Extrem Other: Right wrist incision is clean, dry and intact. Assessment & Plan Assessment & Plan (1) Right carpal tunnel syndrome: Code(s): G56.01 - Carpal tunnel syndrome, right upper limb Category: Medical Plan Patient will use caution for the next 4 weeks with any weighbearing or heavy lifting. He will return to work without restriction in 4 weeks. If new symptoms arise, will contact our office. Scribed for Perla Hernandez PA-C, by Seth Gardner biomedical engineering technologist, on 05/01/2024 at 15:00 PM EST. I, Perla Hernandez PA-C, have personally reviewed and agree with the information entered by the scribe. Coding Level of Care Code Global (28635) Diagnoses Right carpal tunnel syndrome G56.01
[2024-05-01 14:53] VITALS: BMI 20.6
== END 2024-05-01 20:53 | disposition home or self-care (01) ==
PROVIDERS: PCP Internal Medicine; Visit Provider Physician Assistant
DX: G56.01 Carpal tunnel syndrome, right upper limb (principal)
CPT/HCPCS: 99024

== ENCOUNTER → 2024-05-01 14:42 | Outpatient (BNVA) | payer BC, SELFPAY | PROVIDERS: PCP Internal Medicine; Visit Provider Physician Assistant ==

== ENCOUNTER 2024-05-21 13:22 | Outpatient (AMB) | payer BC, SELFPAY ==
--- NOTE | 2024-05-21 13:56 | A.OFFVIS_ITS ---
Vital Signs 05/21/24 14:00 Height 5 ft 4 in Weight 120 lb BMI 20.6 Intake Visit Reasons: PO RT CTR 04/18/24 AR Intake Note: Roderick a 38 year old male who presents today post operatively s/p right CTR on 04/18/[address] Abreu. Patient reports sensitivity on the left side of the incision along with pain and/or burning sensation. Patient explains his right hand and wrist feel tight. He has been experiencing occasional tingling from the shoulder to the wrist. Denies finger locking. Denies any new injuries to the right hand post surgery. He confirms he has been limiting lifting to 2 lbs. Patient thinks he should go to OT. Patient is interested on having left CTR. Allergies latex [LATEX] Allergy (Mild, Verified 05/21/24 14:00) Skin irritation citalopram Allergy (Unknown, Verified 05/21/24 14:00) Depression Seasonal Allergies Allergy (Verified 05/21/24 14:00) Respiratory symptoms, runny nose HPI HPI PO RT CTR 04/18/24 AR: Details: Roderick is a 38 year old right hand dominant man who returns S/P right carpal tunnel release, DOS: 04/18/24 He says he is doing fair, and his sensation is improving & now normal. He complains of some soreness, tightness, in his hand & wrist, and a burning sensation near his incision site. He says he has been covering his incision with a bandage until a few days ago. He also reports episodes of occasional tingling radiating from his right shoulder down his arm. He denies any injuries and says he has been following his activity restrictions. He has left carpal tunnel syndrome. Symptoms intermittent,and occasional over the last few weeks. He says he has had no numbness in the last month, until last night. He complains more of weakness in his left hand & wrist. He would like to discuss surgery for his left hand. 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 he is currently on FMLA. [facility] Medical History Hypovitaminosis D Weight loss Abdominal pain Abdominal pain, generalized Encounter for physical examination Nausea Surgical History History of anal fissures History of shoulder surgery Family History (Updated 02/27/24 @ 16:42 by Sole Pryor MD) Father Cancer Lung cancer, Onset Age: 50 Stroke Mother No problems noted. Maternal Grandmother Diabetes Maternal Uncle Diabetes Social History Housing: House Alcohol intake: former Year quit: 2010 Patient Tobacco Use Status: Never used Tobacco e-Cigarette/Vaping Use: Never Used Second Hand Smoke Exposure: No Substance Use Type: Marijuana service: No Current occupational status: employed Cognitive needs: No Hearing needs: No Vision needs: No Review of Systems Const All systems reviewed & are unremarkable except as noted in HPI and below Physical Exam Vital Signs: BMI result Body Mass Index 20.6 Const General: no acute distress and alert Orientation/consciousness: patient oriented x3 Neuro General: patient oriented x3 Extrem Other: The patient was alert oriented and in no acute distress The incision now well healed with no erythema drainage or evidence of infection. Mild tenderness just ulnar to the incision. No tenderness elsewhere about the incision He can make a fist and extend all his digits Sensation is intact & now normal to the tips of all digits of his right hand Normal sensation in the median nerve distribution of the left hand today in clinic Cap refill is brisk Nerve Conduction Study: IMPRESSION: 1. This is an abnormal study. 2. There is electrodiagnostic evidence for left moderate-severe median neuropathy at the wrist, consistent with carpal tunnel syndrome. 3. There is no electrodiagnostic evidence for ulnar neuropathy, brachial plexopathy, or cervical radiculopathy. Lois Moraes MD, DOM 02/14/24 Impression Mild compression palsy of the median nerve at the wrist on the right consistent with early carpal tunnel syndrome. Normal study on the left. Normal EMG of the right C5-T1 innervated muscles. Dr. Obando 01/11/23 Psych Appearance: grossly normal Affect: normal affect Attitude: cooperative Assessment & Plan Assessment & Plan (1) Right carpal tunnel syndrome: Code(s): G56.01 - Carpal tunnel syndrome, right upper limb Category: Medical (2) Left carpal tunnel syndrome: Code(s): G56.02 - Carpal tunnel syndrome, left upper limb Category: Medical Plan Assessment & Plan: 1. Right Carpal tunnel syndrome, S/P release DOS: 04/18/24 Pre-operative symptoms intermittent, but daily, worse at night or with activities Now with normal sensation & good resolution of his symptoms. The patient appears to be doing well post-operatively I educated him about the post-operative course I discussed activity modifications, he is to use his hand for light & medium- weight activities. 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 He was given a note for work to return to work on 06/03/24, on full duty He will check if his work has any current light duty for him to return early. 2. Left carpal tunnel syndrome, moderate-severe Symptoms intermittent, and occasional over the last 2 months I educated him about this condition I discussed operative and non-operative treatment options The patient would like to proceed with surgery The risks and benefits of operative treatment were discussed with the patient and the patient wishes to proceed with surgery. These risks include, but are not limited to risk of damage to blood vessels, nerves, tendons, infection, recurrence, incomplete relief of preoperative symptoms, persistent pain, possible need for further surgery and the risks associated with regional blocks and anesthesia. The plan is to take the patient to the operating room sometime in the next few weeks for the following procedures: 1. Left carpal tunnel release, under local All of the preoperative paperwork including the consent was reviewed today. All the patient's questions were answered. The patient understands that they will be contacted by our mill order scheduler soon to schedule this procedure He denies Diabetes, blood thinners, asthma, heart, lung, kidney issues 3. Left medial epicondylitis 4. Left lateral epicondylitis Resolved. Scribed for Jessica Abreu MD by Denzel Galindo, medical engineer, on 05/21/24 at 2:30 PM, EST. Orders: Orders OT Evaluation and Treatment Today G56.01 - Carpal tunnel syndrome, right upper limb, G56.02 - Carpal tunnel syndrome, left upper limb Scribe Plan - Not visible on output: Scribed for Jessica Abreu MD by Denzel Galindo, medical engineer, on [ ] at [ ], EST. Coding Level of Care Code Est Pt Level 4 (68853) Diagnoses Right carpal tunnel syndrome G56.01 Left carpal tunnel syndrome G56.02
[2024-05-21 14:00] VITALS: BMI 20.6
== END 2024-05-21 14:36 | disposition home or self-care (01) ==
PROVIDERS: PCP Internal Medicine; Visit Provider Orthopaedic Surgery
DX: G56.03 Carpal tunnel syndrome, bilateral upper limbs (principal)
CPT/HCPCS: 99214

== ENCOUNTER → 2024-05-21 13:22 | Outpatient (BNVA) | payer BC, SELFPAY | PROVIDERS: PCP Internal Medicine; Visit Provider Orthopaedic Surgery ==

== ENCOUNTER 2024-06-20 11:30 | Outpatient (RCR) | payer BC, SELFPAY ==
--- NOTE | 2024-05-30 09:09 | MHC.OT.OEV ---
[address] [phone] F: [phone] Occupational Therapy Evaluation Patient Name: Roderick Rodarte Diagnosis: Right/Left carpal tunnel post op Date of Onset: Date of Surgery: 04/22/24 Attending Provider: Jessica Abreu Prescribed Treatment: MD Follow Up Appointment: History of Current Condition: 38 y/o M s/p (R)carpal tunnel release and (L) carpal tunnel pending release. Pt presents c/c of tightness in the thenar eminence of the (R) hand while bearing weight and applying stretch to the wrist and hand. Pt reports his wrist feels better than it did before surgery but not fully useable . 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 Pt reports still getting the feeling of short duration pins and needles on occasion with heavy activity but nothing compared to what it used to be. Pt states he is trying to stretch his wrist and massage the scar out at home and reports he would like to learn more on what he can do at home. Significant Medical History: lateral epicondylitis (L) shoulder surgery (L) carpal tunnel B/L Precautions/Contraindications: No heavy lifting Patient Goals: Getting hand to feel normal again, restore PLOF. 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 Still working at [employer] Sleep: not affected Driving: (+) Vision: Balance: Pain Assessment Pain Score: 3 Pain Scale Used: Numeric (0 - 10) Pain Location and Description: pain only when pushing it 2-3/10 Pain doesn't last long, describes it as tight pain Aggravating Factors: squeezing or pushing causes some pain Alleviating Factors: Skin and Soft Tissue Assessment Skin and Soft Tissue: Comments: skin intact Nerve assessment Ulnar Nerve: Median Nerve: Radial Nerve: Comments: WFL Sensory Assessment Temperature: Light Touch: Proprioception: Vibration: Comments: Monofilament: WFL Edema Assessment Upper Extremity: Lower Extremity: Comments: NO SWELLING PRESENT Dexterity Assessment Dexterity: WFL Comments: (R) 21.12 (L) 26.69 FUNCTIONAL DEXTERITY TEST Special Tests Comments: Kaylee'naveed (-) [place] lift off (-) Zeynep Stephens (-) AROM(PROM) Strength Cervical Cervical Flexion: Cervical Extension: Cervical Lateral Flexion: Cervical Rotation: Comments: WFL Shoulder Flexion: Extension: Abduction: Internal Rotation: External Rotation: Comments: WFL Flexion: Extension: Abduction: Internal Rotation: External Rotation: Comments: WFL Elbow Flexion: Extension: Pronation: Supination: Comments: WFL Flexion: Extension: Pronation: Supination: Comments: WFL Wrist Flexion: 65* / Extension: 72*/ Ulnar Deviation: 20*/ Radial Deviation: 13*/ Comments: Did not assess PROM Flexion: 4-/5 B/L Extension: 5/5 B/L Ulnar Deviation: 4-/5 B/L Radial Deviation: 4-/5 Comments: B/L decreased strength Thumb Thumb CMC Flexion: Thumb MCP Flexion: Thumb IP Flexion: Radial Abduction: Palmar Abduction: Kemp (Kapandji 0-10): Comments: WFL Digits Index MCP: PIP: DIP: Long MCP: PIP: DIP: Ring MCP: PIP: DIP: Small MCP: PIP: DIP: Comments: WFL Gross Grasp: (R) 24lbs (L) 39 Lateral Pinch: (R) 15lbs (L) 21lbs Two-Point Pinch: (R) 11lbs (L) 16lbs Three-Jaw Saman: (R) 14lbs (L)23lbs Comments: Right strength grossly decreased Patient Education Primary Language: Insurance Solicitor Required: No Current Knowledge: Understands information with skills for self-management Teaching Method: Demonstration Handouts Verbal Education Needs Identified on Evaluation: ADL's Exercise Pain How did patient/family demonstrate learning? Patient verbalizes Barriers to Learning: None Readiness for Learning: Accepting Who was educated? Patient Comments: Plan of Care Assessment: 38 y/o M s/p (R) carpal tunnel release and (L) carpal tunnel presents with bilateral decreased gross strength in hands and occasional pain with movement. Pt has good rehab potential due to his motivation to get better as well as his willingness to complete HEP and learn self-management strategies. Patient presents with tightness in his B/L UE but negative shoulder STT. Patient will benefit from UE stretching routine and strengthening. STG Duration: 2 weeks Short Term Goals: Pt will report 0/10 pain with functional activities around the home in (R) hand/wrist Pt will increase AROM wrist flexion by 5* to improve function with work related tasks. LTG Duration: 4 weeks Supervisor Of Research Goals: Pt will be IND and compliant with HEP Pt will increase quickdash score by 15% to demonstrate improved overall function Pt will increase (R) gross digital media specialist strength by 10 lbs to improve function in work related tasks. Frequency and Duration: The patient will be seen 2x a week for 4 weeks Treatment Plan: Therapeutic Exercise Therapeutic Activity Home Exercise Program Patient Education ADL Training Ultrasound Paraffin MHP Soft Tissue Mobilization Pt will benefit from UE stretching and strengthening . Electronically Signed By: Cherelle Marte OT/s Reviewed/agree with student documentation: Yes Therapist: Emilie Begum, OTR/L, CLT Please sign and return to therapist, Thank you for your referral.
--- NOTE | 2024-06-21 08:49 | MHC.OT.DC ---
[address] [phone] F: [phone] Occupational Therapy Discharge Note Patient Name: Roderick Rodarte Provider: Jessica Abreu Diagnosis: Right/Left carpal tunnel post op Date of Surgery: 04/22/24 Date of Evaluation: 05/28/24 Date of Discharge: Treatments to Date: 8 Cancellations to Date: No Shows to Date: Discharge Status: Achieved Goals Improved Function Independent with HEP Discharge Summary: Discussed discharge planning and goals. Pt met 5/5 therapeutic goals and is IND and compliant w/ home management strategies. Discussed home thermal modality use, indication/contraindication for heat, and thermal modality safety. Pt left clinic today confident in his self-management skills and had no pain. Thank you for your referral Electronically Signed By: Cherelle Marte OT/s Reviewed/agree with student documentation: Yes Therapist: Emilie Begum OTR/L, CLOT Please Sign and return to therapist, thank you for your referral.
== END 2024-06-21 08:49 | disposition home or self-care (01) ==
LOC: HO.OT 11:30
PROVIDERS: PCP Internal Medicine; Visit Provider Orthopaedic Surgery
DX: G56.03 Carpal tunnel syndrome, bilateral upper limbs (principal)
CPT/HCPCS: 97033; 97035; 97110; 97140; 97165

== ENCOUNTER 2024-06-24 07:30 | Day surgery (SDC) | payer BC, SELFPAY ==
[2024-06-24 07:55] VITALS: BP 138/77; PULSE 84; RESP 18; TEMP 36.9; O2SAT 98; BMI 20.9
--- NOTE | 2024-06-24 09:55 | MHC.SHP ---
Pre-Procedural Eval Section A - 24 Hr Update-Section A only Date of Service: 06/24/24 The patient is an INPATIENT: No Changes since office visit: No Cold of Flu in the past 2 weeks, No New Medical Problems, No Changes in Medication and No Patient answered all questions The patient has been examined within 24 hours of the surgical procedure. The History & Physical has been completed within 30 days and I have reviewed it.: Yes Section B - Complete if H&P > 30 days Chief Complaint: Carpal tunnel syndrome, left upper limb Allergies: Allergies Allergy/AdvReac Type Severity Reaction Status Date / Time latex [LATEX] Allergy Mild Skin Verified 05/21/24 14:00 irritation citalopram Allergy Unknown Depression Verified 05/21/24 14:00 Seasonal Allergies Allergy Respiratory Verified 05/21/24 14:00 symptoms, runny nose Plan Diagnosis/Plan: Unchanged I have reviewed the history and physical and performed a pertinent physical examination on my patient. No changes have occurred unless specified. Time Spent With Patient Time: Total time managing care of this patient today ____ minutes.
--- NOTE | 2024-06-24 09:55 | W.PM.OPN ---
Operative Note Operative Note Date of Service: 06/24/24 Narrative: Preop diagnosis: 1. Left Carpal tunnel syndrome Postop diagnosis: same Procedure: 1. Left Carpal tunnel release Surgeon: Jessica Abreu MD Varnish Thinner: None Anesthesia: local block using 1% lidocaine with epinephrine Findings: Thickened transverse carpal ligament. EBL: Less than 5 mL Specimens: None Complications: None Disposition: Brought to recovery room in stable condition Plan: Follow-up for 10-14 days for wound check and suture removal Indications: The patient is 39 years old, with left carpal tunnel syndrome that has been unresponsive to nonoperative management. The risks and benefits of operative treatment including but not limited to risk of damage to blood vessels, nerves, tendons, infection, persistent pain, persistent symptoms, or possible need for additional surgery were discussed with the patient and the patient wishes to proceed with surgery. Procedure: Once consent was obtained a local block was performed using a combination of 1% lidocaine with epinephrine. The patient was then brought back to the operating suite and placed on the operative table in supine position. The left upper extremity was prepped and draped in a standard surgical fashion. Once assured that we had a good block, a 2.0 cm longitudinal incision was made centered over the carpal tunnel. The incision was made through the skin to the subcutaneous tissues using a #15 blade. Dissection was made down to the level of the transverse carpal ligament with care being taken to protect the palmar cutaneous nerve. Once the transverse carpal ligament was clearly visualized, a longitudinal incision was made in the transverse carpal ligament 1st using a #15 blade, then using tenotomy scissors under direct visualization. Care was taken to look for and protect the motor branch of the median nerve when seen in this area. Once satisfied with our carpal tunnel release the wound was copiously irrigated with normal saline and hemostasis was obtained with a brief period of local pressure. The skin edges were reapproximated with some 5.0 nylon suture material and a sterile dressing was applied. The patient appears to have tolerated the procedure well and with no complications. All digits were well vascularized at the conclusion of the case.
[2024-06-24 10:35] VITALS: BP 128/73; PULSE 76; RESP 20; O2SAT 98
== END 2024-06-24 10:36 | disposition home or self-care (01) ==
PROVIDERS: PCP Internal Medicine; Visit Provider Orthopaedic Surgery
PROC: (CPT 64721; principal; 2024-06-24 09:00)
DX: G56.02 Carpal tunnel syndrome, left upper limb (principal); R20.0 Anesthesia of skin; R20.2 Paresthesia of skin; J30.2 Other seasonal allergic rhinitis; Z91.040 Latex allergy status; Z88.8 Allergy status to other drugs, medicaments and biological substances; E55.9 Vitamin D deficiency, unspecified; Z98.890 Other specified postprocedural states
CPT/HCPCS: 64721; J0171; J2003

== ENCOUNTER → 2024-06-24 07:30 | Outpatient (BNV) | payer BC, SELFPAY | PROVIDERS: PCP Internal Medicine; Visit Provider Orthopaedic Surgery | DX: G56.02 Carpal tunnel syndrome, left upper limb (principal) | CPT/HCPCS: 64721 ==

== ENCOUNTER 2024-07-09 14:19 | Outpatient (AMB) | payer BC, SELFPAY ==
--- NOTE | 2024-07-09 14:21 | A.OFFVIS_ITS ---
Intake Visit Reasons: PO LT CTR 06/24/24 AR Intake Note: Roderick is a 39 year old right hand dominant male who presents today post operatively s/p left carpal tunnel release performed on 06/24/[address] Abreu. Denies numbness, tingling, or finger locking. Sutures removed in office today and steri strips applied. Allergies latex [LATEX] Allergy (Mild, Verified 07/09/24 14:28) Skin irritation citalopram Allergy (Unknown, Verified 07/09/24 14:28) Depression Seasonal Allergies Allergy (Verified 07/09/24 14:28) Respiratory symptoms, runny nose HPI HPI PO LT CTR 06/24/24 AR: Details: Roderick is a 38 year old right hand dominant man who returns S/P left carpal tunnel release, DOS: 06/24/24 He says he is doing fair, and his sensation is improving & now normal in his left hand, which he is happy about. He denies any post-op pain on his left, which he is happy about. He reports one or two episodes of brief numbness to the right thumb in the last few months, but overall normal sensation in his right hand. 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 he is currently on FMLA. [facility] Medical History Hypovitaminosis D Weight loss Abdominal pain Abdominal pain, generalized Encounter for physical examination Nausea Surgical History History of anal fissures History of shoulder surgery Family History (Updated 02/27/24 @ 16:42 by Sole Pryor MD) Father Cancer Lung cancer, Onset Age: 50 Stroke Mother No problems noted. Maternal Grandmother Diabetes Maternal Uncle Diabetes Social History (Updated 07/05/24 @ 10:11 by DARWIN Kirkland) Housing: House Alcohol intake: former Year quit: 2010 Patient Tobacco Use Status: Never used Tobacco e-Cigarette/Vaping Use: Never Used Second Hand Smoke Exposure: No Substance Use Type: Marijuana service: No Current occupational status: employed Current occupation: rt handed Cognitive needs: No Hearing needs: No Vision needs: No Review of Systems Const All systems reviewed & are unremarkable except as noted in HPI and below Physical Exam Const General: no acute distress and alert Orientation/consciousness: patient oriented x3 Neuro General: patient oriented x3 Extrem Other: The patient was alert oriented and in no acute distress The incision is healing well with no erythema drainage or evidence of infection. Sutures removed and Steri-Strips applied He can make a fist and extend all her digits Sensation is intact and now normal to the tips of all digits Cap refill is brisk Psych Appearance: grossly normal Affect: normal affect Attitude: cooperative Assessment & Plan Assessment & Plan (1) Right carpal tunnel syndrome: Code(s): G56.01 - Carpal tunnel syndrome, right upper limb Category: Medical (2) Left carpal tunnel syndrome: Code(s): G56.02 - Carpal tunnel syndrome, left upper limb Category: Medical Plan Assessment & Plan: 1. Left carpal tunnel syndrome, S?P release DOS: 06/24/24 Pre-operative symptoms intermittent and occasional, worse at night or with activities Now with normal sensation & good resolution of his symptoms. The patient appears to be doing well post-operatively I educated him about the post-operative course I discussed activity modifications, he is to use his hand for light & medium-weight activities. 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 Right Carpal tunnel syndrome, S/P release DOS: 04/18/24 Pre-operative symptoms intermittent, but daily, worse at night or with activities Now with normal sensation & good resolution of his symptoms. 3. Left medial epicondylitis 4. Left lateral epicondylitis Resolved. Scribed for Jessica Abreu MD by Denzel Galindo, medical record clerk, on 07/09/24 at 2:30 PM, EST. Scribe Plan - Not visible on output: Scribed for Jessica Abreu MD by Denzel Galindo medical record clerk, on [ ] at [ ], EST. Coding Level of Care Code Global (76217) Diagnoses Right carpal tunnel syndrome G56.01 Left carpal tunnel syndrome G56.02
== END 2024-07-09 14:43 | disposition home or self-care (01) ==
PROVIDERS: PCP Internal Medicine; Visit Provider Orthopaedic Surgery
DX: G56.03 Carpal tunnel syndrome, bilateral upper limbs (principal)
CPT/HCPCS: 99024

== ENCOUNTER 2024-12-10 15:14 | Emergency (ER) | payer BC, SELFPAY ==
--- NOTE | ~2024-12-10 | US_ITS ---
EXAMINATION: US ABDOMEN LIMITED CLINICAL INFORMATION: Right upper quadrant pain.. COMPARISON: None available. TECHNIQUE: Real-time imaging of the gallbladder and bile ducts. FINDINGS: GALLBLADDER: The gallbladder is physiologically distended without evidence of stones, sludge, polyps, wall thickening or pericholecystic fluid. Negative sonographic artery sign. COMMON BILE DUCT: Normal in caliber measuring 0.3 cm in diameter. No intrahepatic biliary dilatation. FREE FLUID: None. US/US abdomen limited IMPRESSION: 1. Normal gallbladder and bile ducts. Electronically signed by: Micheal Arreaga MD 12/10/2024 04:40 PM EDT
--- NOTE | ~2024-12-10 | CT_ITS ---
CLINICAL HISTORY: periumbillical pain CT abdomen and pelvis with contrast Comparison: CT - CT ABDOMEN PELVIS W IV CON - 12/10/24 19:01 EDT Findings: No consolidation or effusion. The gallbladder and solid organs are within normal limits. No renal stones. No bowel obstruction, pneumoperitoneum, or pneumatosis. Pelvic contents unremarkable. Normal appendix. No acute fracture. IMPRESSION: No acute findings. This document has been electronically signed by: Jose Siu MD on 12/10/2024 20:16:39
[2024-12-10 15:16] VITALS: BP 134/77; PULSE 68; RESP 14; TEMP 36.2; O2SAT 100; BMI 21.5
--- NOTE | 2024-12-10 15:16 | ECG_ITS ---
Test Reason : pain Blood Pressure : */* mmHG Vent. Rate : 62 BPM Atrial Rate : 62 BPM P-R Int : 122 ms QRS Dur : 104 ms QT Int : 432 ms P-R-T Axes : 78 63 54 degrees QTcB Int : 438 ms Normal sinus rhythm with sinus arrhythmia Minimal voltage criteria for LVH, may be normal variant ( Sokolow-Brewer ) Borderline ECG No previous ECGs available Referred By: Donnie King Electronically Signed By: Joey Dejesus
--- NOTE | 2024-12-10 15:16 | ED.GENADULT ---
HPI - General Adult General Chief complaint: Abdominal Pain Stated complaint: Abdominal pain/Vomiting Time Seen by Provider: 12/10/24 18:36 Related Data Home Medications ?Medication ?Instructions ?Recorded ?Confirmed cetirizine 10 mg tablet (Wal-Zyr 10 mg PO DAILY PRN Allergies 10/12/21 12/10/24 (cetirizine)) Previous Rx's ?Medication ?Instructions ?Recorded omeprazole 20 mg capsule,delayed 20 mg PO DAILY #60 caps 12/10/24 release Allergies Allergy/AdvReac Type Severity Reaction Status Date / Time latex [LATEX] Allergy Mild Skin Verified 12/10/24 15:17 irritation citalopram Allergy Unknown Depression Verified 12/10/24 15:17 Seasonal Allergies Allergy Respiratory Verified 12/10/24 15:17 symptoms, runny nose PMFSH Past Medical History Medical History Hypovitaminosis D Weight loss Abdominal pain Abdominal pain, generalized Encounter for physical examination Nausea Surgical History History of anal fissures History of shoulder surgery Family History Family History (Updated 02/27/24 @ 16:42 by Sole Pryor MD) Father Cancer Lung cancer, Onset Age: 50 Stroke Mother No problems noted. Maternal Grandmother Diabetes Maternal Uncle Diabetes Social History Social History (Updated 07/05/24 @ 10:11 by DARWIN Kirkland) Housing: House Alcohol intake: former Year quit: 2010 Patient Tobacco Use Status: Never used Tobacco Smoked in Last 30 Days: No e-Cigarette/Vaping Use: Never Used Second Hand Smoke Exposure: No Use of substances other than those prescribed or required for medical reasons: Yes Substance Use Type: Marijuana Advance Directives: No Advance Directives Information Provided: Yes Do you have a plan to hurt others: No Plan service: No Current occupational status: employed Current occupation: rt handed Cognitive needs: No Hearing needs: No Vision needs: No Physical Exam ED Vital Signs: BMI result Body Mass Index 21.5 Course Course Course Narrative: RME, this is a rapid medical exam performed by Victor Manuel King please refer to primary provider for complete H&P- 39 year old male presents for evaluation of severe upper abdominal pain with associated nausea and vomiting. Plan for labs, EKG, and RUQ ultrasound Medications Administered Discontinued Medications Generic Name Dose Route Start Last Admin Trade Name Jeff PRN Reason Stop Dose Admin Al Hydroxide/Mg Hydroxide 30 ml 12/10/24 21:37 12/10/24 21:47 Magnesium Hydrox/Alum Hydrox 30 Ml Oral.Susp PO 12/10/24 21:38 30 ml ONCE ONE Administration Calcium Carbonate 1,500 mg 12/10/24 21:37 12/10/24 21:47 Calcium Carbonate 750 Mg Tab.Chew PO 12/10/24 21:38 1,500 mg ONCE ONE Administration Diazepam 2.5 mg 12/10/24 18:45 12/10/24 18:59 Diazepam 10 Mg/2 Ml Cartridge IVPUSH 12/10/24 18:46 2.5 mg STAT STA Administration Diphenhydramine HCl 25 mg 12/10/24 21:28 12/10/24 21:38 Diphenhydramine Hcl 50 Mg/Ml Vial IVPUSH 12/10/24 21:29 25 mg ONCE ONE Administration Haloperidol Lactate 2 mg 12/10/24 21:28 12/10/24 21:38 Haloperidol Lactate 5 Mg/Ml Vial IM 12/10/24 21:29 2 mg ONCE ONE Administration Hydromorphone HCl 1 mg 12/10/24 21:28 12/10/24 21:39 Hydromorphone Hcl 1 Mg/Ml Syringe IVPUSH 12/10/24 21:29 1 mg ONCE ONE Administration Protocol Sodium Chloride 1,000 mls @ 999 mls/hr 12/10/24 18:44 12/10/24 20:25 Ns IVCONT 12/10/24 19:44 Infused .Q1H1M ONE Infusion Iohexol 100 ml 12/10/24 19:03 12/10/24 19:04 Iohexol 350 Mg/Ml 100 Ml Infus..Btl IV 12/10/24 19:04 85 ml ONCE ONE Administration Ketorolac Tromethamine 30 mg 12/10/24 18:44 12/10/24 18:55 Ketorolac Tromethamine 30 Mg/Ml Vial IVPUSH 12/10/24 18:45 30 mg ONCE ONE Administration Lidocaine HCl 15 ml 12/10/24 21:38 12/10/24 21:47 Lidocaine Hcl Viscous 2 % 15 Ml Solution MUCOUS MEM 12/10/24 21:39 15 ml ONCE ONE Administration Morphine Sulfate 2 mg 12/10/24 19:41 12/10/24 19:48 Morphine Sulfate 2 Mg/Ml Cartridge IVPUSH 12/10/24 19:42 2 mg ONCE ONE Administration Protocol Morphine Sulfate 2 mg 12/10/24 20:12 12/10/24 20:23 Morphine Sulfate 2 Mg/Ml Cartridge IVPUSH 12/10/24 20:13 2 mg ONCE ONE Administration Protocol Ondansetron HCl 4 mg 12/10/24 18:44 12/10/24 18:54 Ondansetron Hcl 4 Mg/2 Ml Vial IVPUSH 12/10/24 18:45 4 mg ONCE ONE Administration Pantoprazole Sodium 40 mg 12/10/24 21:37 12/10/24 21:47 Pantoprazole Sodium 40 Mg/10 Ml Vial IVPUSH 12/10/24 21:38 40 mg ONCE ONE Administration Medical Decision Making Lab Data 12/10/24 15:51 12/10/24 15:51 Labs: Lab Results 12/10/24 12/10/24 Range/Units 15:51 19:52 WBC 8.2 (4.8-10.8) X10*3/uL RBC 4.82 (4.60-5.80) X10*6/uL Hgb 14.7 (14.0-18.0) g/dl Hct 41.8 L (42.0-52.0) % MCV 86.7 (80.0-98.0) fL MCH 30.5 (27.0-33.0) pg MCHC 35.2 (31.0-36.0) g/dl RDW 12.9 (11.0-16.0) % Plt Count 258 (160-400) X10*3/uL MPV 9.8 (9.4-12.4) fL Immature Gran % (Auto) 0.2 (0.0-0.4) % Neut % (Auto) 85.2 H (45-73) % Lymph % (Auto) 11.0 L (20-40) % [place] % (Auto) 3.4 (2-11) % Eos % (Auto) 0.0 (0-4) % Baso % (Auto) 0.2 (0-2) % Lymph # (Auto) 0.9 L (1.2-4.9) X10*3/uL [place] # (Auto) 0.3 (0.1-1.2) X10*3/uL Eos # (Auto) 0.0 (0.0-0.4) X10*3/uL Baso # (Auto) 0.0 (0.0-0.2) X10*3/uL Abs Immat Gran (auto) 0.02 (0.00-0.03) X10*3/uL Absolute Neuts (auto) 7.0 (2.0-8.3) x10*3/uL Absolute Nucleated RBC 0.000 (0.0-0.012) X10*3/uL Nucleated RBC % (auto) 0.0 (0.0-0.2) /100WBC Sodium 136 (135-145) mmol/L Potassium 3.6 (3.3-5.1) mmol/L Chloride 104 (96-108) mmol/L Carbon Dioxide 21 L (22-29) mmol/L Anion Gap 15 (12-20) BUN 11 (9-16) mg/dL Creatinine 0.75 (0.5-1.4) mg/dL Estim Creat Clear Calc 107.0 Estimated GFR > 60 Random Glucose 146 H (60-115) mg/dL Calcium 9.8 (8.4-10.2) mg/dL Total Bilirubin 1.1 H (0.0-1.0) mg/dL AST 22 (5-37) U/L ALT 18 (0-40) U/L Alkaline Phosphatase 115 (39-117) U/L Troponin I High Sens < 2.7 (<3.5-35.0) ng/L Total Protein 8.0 (6.5-8.0) g/dL Albumin 5.0 (3.5-5.0) g/dL Lipase 24 (8-78) U/L Urine Color Yellow Urine Appearance Cloudy Urine pH >= 9.0 (5.0-9.0) Ur Specific [place] >= 1.030 H (1.005-1.025) Urine Protein 30 (1+) H (Neg-Trace) mg/dL Urine Glucose (UA) Negative (Negative) mg/dL Urine Ketones 80 (Negative) mg/dL Urine Blood Negative (Negative) Urine Nitrite Negative (Negative) Ur Leukocyte Esterase Negative (Negative) Urine RBC 0-2 (0-2) /HPF Urine WBC 0-5 (0-5) /HPF Ur Squamous Epith Cells 0-2 (0-2) /HPF Other Crystals Present Urine Bacteria Trace (None Seen) Hyaline Casts 0-2 (0-2) /LPF Urine Opiates Screen Not Detected (Not Detect) Ur Buprenorphine Scrn Not Detected (Not Detect) ng/mL Ur Oxycodone Screen Not Detected (Not Detect) ng/mL Urine Methadone Screen Not Detected (Not Detect) ng/mL Urine Fentanyl Screen Not Detected (Not Detect) Ur Barbiturates Screen Not Detected (Not Detect) Ur Phencyclidine Scrn Not Detected (Not Detect) Ur Amphetamines Screen Not Detected (Not Detect) U Benzodiazepines Scrn Not Detected (Not Detect) Urine Cocaine Screen Not Detected (Not Detect) U Marijuana (THC) Screen POSITIVE H (Not Detect) Influenza Type A (PCR) NEGATIVE (Negative) Influenza Type B (PCR) NEGATIVE (Negative) RSV RNA Qual (PCR) NEGATIVE (Negative) SARS-CoV-2 RNA (RT-PCR) NEGATIVE (Negative) Discharge Plan Discharge Clinical Impression: Peptic ulcer disease Patient Disposition: Home, Self-Care Instructions: Peptic Ulcer (ED), Diet for Stomach Ulcers and Gastritis (ED) Additional Instructions: Please follow-up with your primary care physician tomorrow. If you have any worsening or new symptoms, please return to the emergency room or call 911 Prescriptions: New omeprazole 20 mg capsule,delayed release(DR/EC) 20 mg PO DAILY Qty: 60 0RF No Action cetirizine [Wal-Zyr (cetirizine)] 10 mg tablet 10 mg PO DAILY PRN (Reason: Allergies) Stand Alone Forms: Work/School Release Interventions: ED Discharge Assessment Last Done: 12/10/24 22:49 Discharge Date/Time: 12/10/24 22:49 Print Language: Greenlandic
[2024-12-10 15:56] LABS: MANUAL DIFF FLAG NO
[2024-12-10 15:58] LABS: Basophils Percent Auto 0.2 % (0-2); Hematocrit 41.8 % (42.0-52.0); Hemoglobin 14.7 g/dl (14.0-18.0); Imm Gran Abs Auto 0.02 X10*3/uL (0.00-0.03); Imm Gran Pct Auto 0.2 % (0.0-0.4); Lymphocytes Absolute Auto 0.9 X10*3/uL (1.2-4.9); Mean Corpuscular HGB Conc 35.2 g/dl (31.0-36.0); Mean Corpuscular Hemoglobin 30.5 pg (27.0-33.0); Mean Corpuscular Volume 86.7 fL (80.0-98.0); Mean Platelet Volume 9.8 fL (9.4-12.4); Monocytes Absolute Auto 0.3 X10*3/uL (0.1-1.2); Monocytes Percent Auto 3.4 % (2-11); Neutrophils Percent Auto 85.2 % (45-73); Platelet Count 258 X10*3/uL (160-400); Red Blood Count 4.82 X10*6/uL (4.60-5.80); Red Cell Distribution Width 12.9 % (11.0-16.0); White Blood Count 8.2 X10*3/uL (4.8-10.8)
[2024-12-10 16:10] LABS: Alanine Aminotransferase 18 U/L (0-40); Alkaline Phosphatase 115 U/L (39-117); Anion Gap 15 (12-20); Aspartate Amino Transferase 22 U/L (5-37); Bilirubin Total 1.1 mg/dL (0.0-1.0); Blood Urea Nitrogen 11 mg/dL (9-16); Calcium 9.8 mg/dL (8.4-10.2); Carbon Dioxide 21 mmol/L (22-29); Chloride 104 mmol/L (96-108); Estimated Glomerular Filt Rate > 60; Glucose Random 146 mg/dL (60-115); Lipase 24 U/L (8-78); Potassium 3.6 mmol/L (3.3-5.1); Sodium 136 mmol/L (135-145)
[2024-12-10 16:18] LABS: Troponin-I High Sensitivity < 2.7 ng/L (<3.5-35.0)
[2024-12-10 16:57] LABS: Influenza A PCR NEGATIVE (Negative); Influenza B PCR NEGATIVE (Negative); Resp Syncy Virus RNA Qual PCR NEGATIVE (Negative); SARS COV2 PCR INHOUSE NEGATIVE (Negative)
--- NOTE | 2024-12-10 18:48 | ED.ABDPAIN ---
HPI - Abdominal Pain General Chief Complaint: Abdominal Pain Stated Complaint: Abdominal pain/Vomiting Time Seen by Provider: 12/10/24 18:36 Source: patient and family Mode of arrival: ambulatory Limitations: no limitations History of Present Illness ED Provider: Dr. Rin Dejesus HPI narrative: patient comes in the emergency room complaining of abdominal pain starting Ten hours ago. patient complaining of epigastric and periumbilical pain. According to the patient's partner. Patient has had this episodes of intense abdominal pain that is self-resolved. It has been years since he has had abdominal pain this intense. Patient admits to using marijuana. Patient not complaining particularly of significant nausea or vomiting. Patient's partner attributes his intense abdominal pain to stress, 2 days ago they had a miscarriage. Patient has had several episodes of diarrhea. Patient denies any previous abdominal surgeries. Related Data Home Medications ?Medication ?Instructions ?Recorded ?Confirmed cetirizine 10 mg tablet (Wal-Zyr 10 mg PO DAILY PRN Allergies 10/12/21 12/10/24 (cetirizine)) Previous Rx's ?Medication ?Instructions ?Recorded omeprazole 20 mg capsule,delayed 20 mg PO DAILY #60 caps 12/10/24 release Allergies Allergy/AdvReac Type Severity Reaction Status Date / Time latex [LATEX] Allergy Mild Skin Verified 12/10/24 15:17 irritation citalopram Allergy Unknown Depression Verified 12/10/24 15:17 Seasonal Allergies Allergy Respiratory Verified 12/10/24 15:17 symptoms, runny nose Review of Systems Review of Systems Constitutional : No Weight loss, No Fever, No Chills, No Night Sweats, No Fatigue, No Malaise ENT/Mouth : No Hearing loss, No Ear Pain, No Nasal Congestion, No Sinus Pain, No Hoarseness, No sore throat, No Rhinorrhea, No Swallowing Difficulty Eyes: No Eye Pain, No Swelling, No Redness, No Foreign Body, No Discharge, No Vision Changes Cardiovascular : No Chest Pain, No SOB, No Dyspnea on Exertion, No Orthopnea, No Edema, No Palpitations Respiratory : No Cough, No Sputum, No Wheezing, No Smoke Exposure, No Dyspnea Gastrointestinal : Complaining of abdominal pain, nausea vomiting and diarrhea. Genitourinary : no irregular bleeding, No Dysuria, No Urinary Frequency, No Hematuria, No Urinary Incontinence, No Urgency, No Flank Pain, No Urinary Flow Changes, No Hesitancy Musculoskeletal : No joint pain, No Myalgias, No Joint Swelling Skin : No Skin Lesions, No rash Neuro : No Weakness, No Numbness, No Paresthesias, No Loss of Consciousness, No Dizziness, No Headache Psych : No Anxiety/Panic, No Depression, No SI/HI/AH/VH, No Social Issues, Heme/Lymph: No Bruising, No Bleeding,No Lymphadenopathy Endocrine : No Polyuria, No Polydipsia, No Temperature Intolerance [facility] Past Medical History Medical History Hypovitaminosis D Weight loss Abdominal pain Abdominal pain, generalized Encounter for physical examination Nausea Surgical History History of anal fissures History of shoulder surgery Family History Family History (Updated 02/27/24 @ 16:42 by Sole Pryor MD) Father Cancer Lung cancer, Onset Age: 50 Stroke Mother No problems noted. Maternal Grandmother Diabetes Maternal Uncle Diabetes Social History Social History (Updated 07/05/24 @ 10:11 by DARWIN Kirkland) Housing: House Alcohol intake: former Year quit: 2010 Patient Tobacco Use Status: Never used Tobacco Smoked in Last 30 Days: No e-Cigarette/Vaping Use: Never Used Second Hand Smoke Exposure: No Use of substances other than those prescribed or required for medical reasons: Yes Substance Use Type: Marijuana Advance Directives: No Advance Directives Information Provided: Yes Do you have a plan to hurt others: No Plan service: No Current occupational status: employed Current occupation: rt handed Cognitive needs: No Hearing needs: No Vision needs: No Physical Exam ED Vital Signs: Vital Signs - 24 hr 12/10/24 15:16 12/10/24 19:53 12/10/24 21:41 Temperature 97.2 F Pulse Rate 68 84 95 Respiratory Rate 14 20 16 Blood Pressure 134/77 147/81 H 137/79 Pulse Oximetry 100 100 100 Oxygen Delivery Method Room Air Room Air Room Air BMI result Body Mass Index 21.5 Const Other: Appearance: Alert. Oriented X3. Patient intermittently yelling Eyes: Pupils equal, round and reactive to light. ENT: Pharynx normal. Neck: Normal inspection. Neck supple. No lymph nodes noted. No crepitus CVS: Normal heart rate and rhythm. Pulses normal. Normal S1 and S2 Respiratory: No respiratory distress. Breath sounds normal. No Wheezing. No rales Abdomen: Soft , patient reported tenderness to palpation in the epigastric and right upper quadrant. , patient did not have any in rebound or guarding Skin: Skin warm and dry. Normal skin color. Normal skin turgor. Extremities: No lower extremity edema. No Lacerations. No Rash Neuro: Oriented X 3. No motor deficit. No sensory deficit. Moving all extremities. No slurred speech. CN 2 through 12 grossly intact Psych: calm, cooperative, normal affect Course Course Course Narrative: earlier today, ultrasound was ordered from triage and labs. Medical Decision Making Medical Decision Making [facility] Narrative: My interpretation of labs: Patient's hematology shows a normal white blood cell count, no significant abnormality in patient's hematology, chemistry shows no acute abnormalities. Normal lipase, significant abnormalities in patient's LFTs, troponin negative, serology negative for influenza RSV and COVID patient receiving IV fluids, Zofran, ketorolac and a dose of diazepam ultrasound of the right upper quadrant shows normal gallbladder and bile ducts CT scan of the abdomen does not show any acute findings that would explain patient is source of abdominal pain. Patient has received multiple doses of pain medication, nausea medication. Patient is still reporting 7/10 abdominal pain I discussed the patient with Dr. Forrester from the Medicine team, potentially being admitted for intractable abdominal pain. However, patient was giving a GI cocktail and states that he feels better. Patient requested to be discharged with p.o. Dilaudid, I discussed with the patient that it is not indicated at this time, however we will send medications for acid reflux, patient agreeable. Discussed with the patient not to use NSAIDs which may worsen his symptoms and also to stop smoking marijuana which may contribute to the abdominal pain and nausea/vomiting Differential Diagnosis Differential Diagnoses: The differential diagnosis associated with the presentation includes ( cholecystitis, pancreatitis, SBO, perforation, kidney stones, functional abdominal pain, anxiety) Admission/Observation Consideration of admission/observation: Escalation of care including admission/observation considered Consult Healthcare Provider Management of the patient was discussed with: Hospitalist Lab Data [facility] Lab Attestation statement: I reviewed the patient's lab results. 12/10/24 15:51 12/10/24 15:51 Labs: Lab Results 04/29/25 04/29/25 Range/Units 15:51 19:52 WBC 8.2 (4.8-10.8) X10*3/uL RBC 4.82 (4.60-5.80) X10*6/uL Hgb 14.7 (14.0-18.0) g/dl Hct 41.8 L (42.0-52.0) % MCV 86.7 (80.0-98.0) fL MCH 30.5 (27.0-33.0) pg MCHC 35.2 (31.0-36.0) g/dl RDW 12.9 (11.0-16.0) % Plt Count 258 (160-400) X10*3/uL MPV 9.8 (9.4-12.4) fL Immature Gran % (Auto) 0.2 (0.0-0.4) % Neut % (Auto) 85.2 H (45-73) % Lymph % (Auto) 11.0 L (20-40) % [place] % (Auto) 3.4 (2-11) % Eos % (Auto) 0.0 (0-4) % Baso % (Auto) 0.2 (0-2) % Lymph # (Auto) 0.9 L (1.2-4.9) X10*3/uL [place] # (Auto) 0.3 (0.1-1.2) X10*3/uL Eos # (Auto) 0.0 (0.0-0.4) X10*3/uL Baso # (Auto) 0.0 (0.0-0.2) X10*3/uL Abs Immat Gran (auto) 0.02 (0.00-0.03) X10*3/uL Absolute Neuts (auto) 7.0 (2.0-8.3) x10*3/uL Absolute Nucleated RBC 0.000 (0.0-0.012) X10*3/uL Nucleated RBC % (auto) 0.0 (0.0-0.2) /100WBC Sodium 136 (135-145) mmol/L Potassium 3.6 (3.3-5.1) mmol/L Chloride 104 (96-108) mmol/L Carbon Dioxide 21 L (22-29) mmol/L Anion Gap 15 (12-20) BUN 11 (9-16) mg/dL Creatinine 0.75 (0.5-1.4) mg/dL Estim Creat Clear Calc 107.0 Estimated GFR > 60 Random Glucose 146 H (60-115) mg/dL Calcium 9.8 (8.4-10.2) mg/dL Total Bilirubin 1.1 H (0.0-1.0) mg/dL AST 22 (5-37) U/L ALT 18 (0-40) U/L Alkaline Phosphatase 115 (39-117) U/L Troponin I High Sens < 2.7 (<3.5-35.0) ng/L Total Protein 8.0 (6.5-8.0) g/dL Albumin 5.0 (3.5-5.0) g/dL Lipase 24 (8-78) U/L Urine Color Yellow Urine Appearance Cloudy Urine pH >= 9.0 (5.0-9.0) Ur Specific [place] >= 1.030 H (1.005-1.025) Urine Protein 30 (1+) H (Neg-Trace) mg/dL Urine Glucose (UA) Negative (Negative) mg/dL Urine Ketones 80 (Negative) mg/dL Urine Blood Negative (Negative) Urine Nitrite Negative (Negative) Ur Leukocyte Esterase Negative (Negative) Urine RBC 0-2 (0-2) /HPF Urine WBC 0-5 (0-5) /HPF Ur Squamous Epith Cells 0-2 (0-2) /HPF Other Crystals Present Urine Bacteria Trace (None Seen) Hyaline Casts 0-2 (0-2) /LPF Urine Opiates Screen Not Detected (Not Detect) Ur Buprenorphine Scrn Not Detected (Not Detect) ng/mL Ur Oxycodone Screen Not Detected (Not Detect) ng/mL Urine Methadone Screen Not Detected (Not Detect) ng/mL Urine Fentanyl Screen Not Detected (Not Detect) Ur Barbiturates Screen Not Detected (Not Detect) Ur Phencyclidine Scrn Not Detected (Not Detect) Ur Amphetamines Screen Not Detected (Not Detect) U Benzodiazepines Scrn Not Detected (Not Detect) Urine Cocaine Screen Not Detected (Not Detect) U Marijuana (THC) Screen POSITIVE H (Not Detect) Influenza Type A (PCR) NEGATIVE (Negative) Influenza Type B (PCR) NEGATIVE (Negative) RSV RNA Qual (PCR) NEGATIVE (Negative) SARS-CoV-2 RNA (RT-PCR) NEGATIVE (Negative) Independent Interpretation I performed an independent interpretation of an: Ultrasound and CT Scan Radiology Impression Discussion of test interpretation with radiology: I have reviewed the radiologist's reading. Radiologist Impression: No consolidation or effusion. The gallbladder and solid organs are within normal limits. No renal stones. No bowel obstruction, pneumoperitoneum, or pneumatosis. Pelvic contents unremarkable. Normal appendix. No acute fracture. IMPRESSION: No acute findings GALLBLADDER: The gallbladder is physiologically distended without evidence of stones, sludge, polyps, wall thickening or pericholecystic fluid. Negative sonographic artery sign. COMMON BILE DUCT: Normal in caliber measuring 0.3 cm in diameter. No intrahepatic biliary dilatation. FREE FLUID: None. US/US abdomen limited IMPRESSION: 1. Normal gallbladder and bile ducts. Medications Administered Discontinued Medications Generic Name Dose Route Start Last Admin Trade Name Freq PRN Reason Stop Dose Admin Al Hydroxide/Mg Hydroxide 30 ml 12/10/24 21:37 12/10/24 21:47 Magnesium Hydrox/Alum Hydrox 30 Ml Oral.Susp PO 12/10/24 21:38 30 ml ONCE ONE Administration Calcium Carbonate 1,500 mg 12/10/24 21:37 12/10/24 21:47 Calcium Carbonate 750 Mg Tab.Chew PO 12/10/24 21:38 1,500 mg ONCE ONE Administration Diazepam 2.5 mg 12/10/24 18:45 12/10/24 18:59 Diazepam 10 Mg/2 Ml Cartridge IVPUSH 12/10/24 18:46 2.5 mg STAT STA Administration Diphenhydramine HCl 25 mg 12/10/24 21:28 12/10/24 21:38 Diphenhydramine Hcl 50 Mg/Ml Vial IVPUSH 12/10/24 21:29 25 mg ONCE ONE Administration Haloperidol Lactate 2 mg 12/10/24 21:28 12/10/24 21:38 Haloperidol Lactate 5 Mg/Ml Vial IM 12/10/24 21:29 2 mg ONCE ONE Administration Hydromorphone HCl 1 mg 12/10/24 21:28 12/10/24 21:39 Hydromorphone Hcl 1 Mg/Ml Syringe IVPUSH 12/10/24 21:29 1 mg ONCE ONE Administration Protocol Sodium Chloride 1,000 mls @ 999 mls/hr 12/10/24 18:44 12/10/24 20:25 Ns IVCONT 12/10/24 19:44 Infused .Q1H1M ONE Infusion Iohexol 100 ml 12/10/24 19:03 12/10/24 19:04 Iohexol 350 Mg/Ml 100 Ml Infus..Btl IV 12/10/24 19:04 85 ml ONCE ONE Administration Ketorolac Tromethamine 30 mg 12/10/24 18:44 12/10/24 18:55 Ketorolac Tromethamine 30 Mg/Ml Vial IVPUSH 12/10/24 18:45 30 mg ONCE ONE Administration Lidocaine HCl 15 ml 12/10/24 21:38 12/10/24 21:47 Lidocaine Hcl Viscous 2 % 15 Ml Solution MUCOUS MEM 12/10/24 21:39 15 ml ONCE ONE Administration Morphine Sulfate 2 mg 12/10/24 19:41 12/10/24 19:48 Morphine Sulfate 2 Mg/Ml Cartridge IVPUSH 12/10/24 19:42 2 mg ONCE ONE Administration Protocol Morphine Sulfate 2 mg 12/10/24 20:12 12/10/24 20:23 Morphine Sulfate 2 Mg/Ml Cartridge IVPUSH 12/10/24 20:13 2 mg ONCE ONE Administration Protocol Ondansetron HCl 4 mg 12/10/24 18:44 12/10/24 18:54 Ondansetron Hcl 4 Mg/2 Ml Vial IVPUSH 12/10/24 18:45 4 mg ONCE ONE Administration Pantoprazole Sodium 40 mg 12/10/24 21:37 12/10/24 21:47 Pantoprazole Sodium 40 Mg/10 Ml Vial IVPUSH 12/10/24 21:38 40 mg ONCE ONE Administration Critical Care Time Critical Care Time Critical Care Time: Yes Total Critical Care Time: 60 Attestation: I have personally provided critical care time. Time includes review of lab data, radiology results, discussion with consultants, and monitoring for potential decompensation. Intervention performed as documented. Discharge Plan Discharge Clinical Impression: Peptic ulcer disease Patient Disposition: Home, Self-Care Instructions: Peptic Ulcer (ED), Diet for Stomach Ulcers and Gastritis (ED) Additional Instructions: Please follow-up with your primary care physician tomorrow. If you have any worsening or new symptoms, please return to the emergency room or call 911 Prescriptions: New omeprazole 20 mg capsule,delayed release(DR/EC) 20 mg PO DAILY Qty: 60 0RF No Action cetirizine [Wal-Zyr (cetirizine)] 10 mg tablet 10 mg PO DAILY PRN (Reason: Allergies) Stand Alone Forms: Work/School Release Print Language: Hungarian
--- OUTSIDE RECORDS SUMMARY | 2024-12-10 18:50 | XMS_ITS | Encounter Summary ---
Author Organization [employer] Address [address] [place] [address] [address] [place] [address] Care Team Providers Care Interior Designer Name Role Phone Unavailable Primary Care Provider Unavailabl e Encounter Details Date Type Department Care Team (Latest Contact Info) Description 11/15/2021 Abstract [facility] CONVERSIONS Dental, Provider, DDS Social History Tobacco Use Types Packs/Day Years Used Date Smoking Tobacco: Never Assessed Sex and Gender Information Value Date Recorded Sex Assigned at Male 06/13/2022 10:21 AM EDT Legal Sex Male 10:21 AM EDT Gender Identity Male 06/13/2022 10:21 AM EDT Sexual Orientation Straight 06/13/2022 10 :21 AM EDT documented as of this encounter Plan of Treatment Not on file documented as of this encounter Visit Diagnoses Not on filedocumented in this encounter
--- OUTSIDE RECORDS SUMMARY | 2024-12-10 18:51 | XMS_ITS | Clinical Summary ---
Author Organization [employer] Address [address] [facility] [place] [address] Care Team Providers Care Biomedical Equipment Support Specialist Name Role Phone Unavailable Primary Care Provider Unavailabl e Allergies No known active allergies Medications cholecalciferol (Vitamin D-3) 50 MCG (1999 UT) capsule Active Sodium Fluoride (PreviDent 5000 Booster Plus) 1.1 % paste Please use pea size to brush teeth. Spit after brushing. Do not rinse. 112 g 1 Active Additional Information Patient not taking.Reported on 07/23/2024 Active Problems No known active problems Social History Tobacco Use Types Packs/Day Years Used Date Smoking Tobacco: Never Passive Smoke Exposure: Never Smokeless Tobacco: Never Tobacco Cessation:Counseling Given: Not Answered Alcohol Use Standard Drinks/Week Comments Never 0 (1 standard drink = 0.6 oz pur e alcohol) Sex and Gender Information Value Date Recorded Sex Assigned at Male 06/13/2022 10:21 AM EDT Legal Sex Male 10:21 AM EDT Gender Identity Male 06/13/2022 10:21 AM EDT Sexual Orientation Straight 06/13/2022 10 :21 AM EDT Last Filed Vital Signs Vital Sign Reading Time Taken Comments Blood Pressure 124/78 07/23/2024 3:10 PM EST Pulse 65 03/01/2024 9:02 AM EDT Temperature - - Respiratory Rate - - Oxygen Saturation - - Inhaled Oxygen Concentration - - Weight - - Height - - Body Mass Index - - Plan of Treatment Health Maintenance Due Date Last Done Comments Depression Screening 1986 HIV Screening 1986 Lipid Panel 1986 SDOH Screening 1986 Alcohol/Substance Use Screening 1998 Family Planning (PISQ) 2001 Hepatitis C Screening 2004 Hepatitis A Vaccines (1 of 2 - Risk 2-dose series) 2005 Hepatitis B Vaccines (1 of 3 - 19+ 3-dose series) 2005 DTaP/Tdap/Td Vaccines (2 - Td or Tdap) 01/09/2023 01/09/2013, 01/09/2013 COVID-19 Vaccine ( season) 2024 06/27/2022, 09/02/2021, 03/30/2021, Additional history exists Influenza Vaccine (#1) 2024 06/27/2022, 2016 Dental Oral Exam 09/02/2024 03/01/2024, , 01/12/2023, Additional history exists Dental Prophylaxis 01/22/2025 07/23/2024, 0 03/01/2024, 05/11/2023, Additional history exists Dental X-Ray: Bitewings 03/20/2025 03/19/20 24, 03/01/2024, 09/05/2023, Additional history exists Tobacco Screening 07/23/2025 07/23/2024 Dental X-Ray: Full Mouth 03/02/2027 03/01/2024, 12/13 Zoster Vaccines (1 of 2) 2036 RSV Patients and Patients Aged 60 years or older (1 - 1-dose 75+ series) 2061 HIB Vaccines Aged Out No longer eligi ble based on patient's age to complete this topic HPV Vaccines Aged Out No longer eligi ble based on patient's age to complete this topic IPV Vaccines Aged Out No longer eligi ble based on patient's age to complete this topic Meningococcal Vaccine Aged Out No kuldip roel eligible based on patient's age to complete this topic Pneumococcal Vaccine: Pediatrics (0 to 5 Years) and At-Risk Patients (6 to 49) Years) Aged Out No longer eligible based on patient's age to complete this topic RSV under 20 months Aged Out No longe r eligible based on patient's age to complete this topic Rotavirus Vaccines Aged Out No longer eligible based on patient's age to complete this topic Procedures Procedure Name Priority Date/Time Associated Diagnosis Comments PROPHYLAXIS - ADULT Routine 07/23/2024 3 :00 PM EST BITEWING - SINGLE RADIOGRAPHIC IMAGE Routine 03/19/2024 8:00 AM EDT INTRAORAL - COMPLETE SERIES OF RADIOGRAPHIC IMAGES Routine 03/01/2024 9:00 AM EDT PERIODIC ORAL EVALUATION - ESTABLISHED PATIENT Routine 03/01/2024 9:00 AM EDT from Last 3 Months or Most Recently Relevant to Health Maintenance Insurance DENTAL - HSN PARTIAL (MEDICAID[place] [address] [place] [address] [address] [place] [address]
--- OUTSIDE RECORDS SUMMARY | 2024-12-10 18:51 | XMS_ITS | Encounter Summary ---
Author Organization [employer] Address [address] [place] [address] Care Team Providers Care Merchant Mill Utility Worker Name Role Phone Unavailable Primary Care Provider Unavailabl e Encounter Details Date Type Department Care Team (Latest Contact Info) Description 10/12/2018 Abstract [facility] CONVERSIONS Dental, Provider, DDS Social History [...]
[2024-12-10] MEDS: ondansetron HCL 4 MG/2 ML VIAL IVPUSH (18:54)
[2024-12-10] MEDS: Ketorolac Tromethamine 30 MG/ML VIAL IVPUSH (18:55)
[2024-12-10] MEDS: 0.9 % Sodium Chloride 1,000 ML 999 ML IVCONT (18:56)
[2024-12-10] MEDS: diazePAM 10 MG/2 ML CARTRIDGE 2.5 MG IVPUSH (18:59)
[2024-12-10] MEDS: iohexoL 350 MG/ML 100 ML INFUS..BTL IV (19:04)
[2024-12-10] MEDS: Morphine Sulfate 2 MG/ML CARTRIDGE IVPUSH ×2 (19:48→20:23)
[2024-12-10 19:53] VITALS: BP 147/81; PULSE 84; RESP 20; O2SAT 100
[2024-12-10 20:05] LABS: Appearance Urine Cloudy; Color Urine Yellow; Glucose Urine UA Negative (Negative); Leukocyte Esterase Urine Negative (Negative); Nitrite Urine Negative (Negative); PH >= 9.0 (5.0-9.0); Specific Gravity - Urine >= 1.030 (1.005-1.025); UMIC TRIGGER UACC YES; Urine Blood Negative (Negative); Urine Ketones 80 mg/dL (Negative); Urine Protein 30 (1+) mg/dL (Neg-Trace)
[2024-12-10 20:11] LABS: Amphetamine Screen Urine Not Detected (Not Detect); Barbiturates, Urine Not Detected (Not Detect); Benzodiazepines Screen Urine Not Detected (Not Detect); Buprenorphine Scr Not Detected (Not Detect); Cannabinoid Screen Urine POSITIVE (Not Detect); Cocaine Screen Urine Not Detected (Not Detect); Fentanyl, urine Not Detected (Not Detect); Methadone Screen, Urine Not Detected (Not Detect); Opiate Screen Urine Not Detected (Not Detect); Oxycodone Screen Urine Not Detected (Not Detect); Phencyclidine Screen Urine Not Detected (Not Detect)
[2024-12-10 20:22] LABS: Bacteria Urine Trace (None Seen); Hyaline Casts Urine 0-2 /LPF (0-2); Other Crystals Urine Present; RBC Urine 0-2 /HPF (0-2); Squamous Epithelial Cell Urine 0-2 /HPF (0-2); WBC Urine 0-5 /HPF (0-5)
[2024-12-10] MEDS: Haloperidol Lactate 5 MG/ML VIAL 2 MG IM (21:38)
[2024-12-10] MEDS: diphenhydrAMINE HCL 50 MG/ML VIAL 25 MG IVPUSH (21:38)
[2024-12-10] MEDS: HYDROmorphone HCl 1 MG/ML SYRINGE IVPUSH (21:39)
[2024-12-10 21:41] VITALS: BP 137/79; PULSE 95; RESP 16; O2SAT 100
[2024-12-10] MEDS: Pantoprazole Sodium 40 MG/10 ML VIAL IVPUSH (21:47)
[2024-12-10] MEDS: Calcium Carbonate 750 MG TAB.CHEW 1500 MG PO (21:47)
[2024-12-10] MEDS: Lidocaine HCl Viscous 2 % 15 ML SOLUTION MUCOUS MEM (21:47)
[2024-12-10] MEDS: Magnesium Hydrox/Alum Hydrox 30 ML ORAL.SUSP PO (21:47)
--- NOTE | 2024-12-10 21:59 | PHA.MEDREC ---
Addendum entered by Jason Rollins [facility] 12/10/24 22:06: Med rec reviewed Original Note: Pharmacy Consult ? Medication Reconciliation Pharmacy has completed the medication reconciliation. Spoke with patient and patients partner at bedside and the patient confirmed he is only taking Zyrtec (Cetirizine 10mg) as needed for his allergies and nothing else at this time.
[2024-12-10 22:41] VITALS: BP 110/53; PULSE 88; RESP 21; O2SAT 98
[2024-12-10 22:49] VITALS: BP 110/53; PULSE 88; RESP 21; TEMP 37.1; O2SAT 98
== END 2024-12-10 22:49 | disposition home or self-care (01) ==
PROVIDERS: Physician Assistant; Emergency Provider Emergency Medicine; PCP Internal Medicine
DX: K27.9 Peptic ulcer, site unspecified, unspecified as acute or chronic, without hemorrhage or perforation (principal); R10.11 Right upper quadrant pain; R07.9 Chest pain, unspecified; Z03.818 Encounter for observation for suspected exposure to other biological agents ruled out; Z79.899 Other long term (current) drug therapy
CPT/HCPCS: 0241U; 74177; 76705; 80053; 80307; 81001; 83690; 84484; 85025; 93005; 96361; 96372; 96374; 96375; 96376; 99285; J1171; J1200; J1630; J1885; J2270; J2405; J2470; J3360; Q9967

== ENCOUNTER → 2024-12-10 15:16 | Outpatient (BNV) | payer BC, SELFPAY | PROVIDERS: Emergency Provider Emergency Medicine; PCP Internal Medicine; Visit Provider Internal Medicine Cardiovascular Disease | DX: R07.9 Chest pain, unspecified (principal) | CPT/HCPCS: 93010 ==

== ENCOUNTER → 2024-12-10 15:18 | Outpatient (BNV) | payer BC, SELFPAY | PROVIDERS: PCP Internal Medicine; Visit Provider Radiology Diagnostic Radiology | DX: R10.33 Periumbilical pain (principal); R10.11 Right upper quadrant pain | CPT/HCPCS: 74177; 76705 ==

== ENCOUNTER 2025-05-23 08:52 | Outpatient (AMB) | payer BC, SELFPAY ==
[2025-05-23 08:59] VITALS: BP 102/64; PULSE 64; RESP 18; TEMP 36.3; O2SAT 98; BMI 20.3
--- NOTE | 2025-05-23 08:59 | A.OFFPC_ITS ---
Vital Signs 05/23/25 08:59 Height 5 ft 4 in Weight 118 lb 4 oz BMI 20.3 BP 102/64 Blood Pressure Location Lt brachial Position Sitting Respiration 18 Pulse 64 Pulse Source Pulse Oximeter Temp 97.3 F Temp Source Temporal Artery Scan Pulse Oximetry (%) 98 Oxygen Delivery Method Room Air Intake Visit Reasons: annual exam Assistant Director Of Residence Life Required: No Accompanied by: Self / Same As Patient Allergies latex (LATEX) Allergy (Mild, Verified 05/23/25 09:16) Skin irritation citalopram Allergy (Unknown, Verified 05/23/25 09:16) Depression Seasonal Allergies Allergy (Verified 05/23/25 09:16) Respiratory symptoms, runny nose Medication List - Last Reconciled 05/23/25 by Sole Pryor MD cetirizine (Wal-Zyr (cetirizine)) 10 mg PO DAILY PRN omeprazole 20 mg PO DAILY Tobacco use date assessed: 05/23/25 Dental Screening Dental Screen Date: 05/23/25 Did you have a dental visit in the last 12 months?: Yes Did you have a dental problem in the last 6 months where you did not have access to dental care?: No Was dental information given to patient?: Patient has dentist HPI HPI Comments History of Present Illness Details The patient is a 39-year-old male presenting for a wellness visit. The patient reports a history of carpal tunnel syndrome, for which he underwent surgery at the end of last year. Post-surgery, he experienced weight gain due to inactivity, reaching up to 128 pounds, which he found uncomfortable. Currently, his weight is 118 pounds, and he feels better at this leaner weight, although he occasionally feels scrawny. The patient has a history of latex allergy causing skin irritation and seasonal allergies managed with Cetirizine as needed. He also uses Omeprazole as needed for heartburn, which has been less frequent due to dietary changes. He has a history of anal fissure repair and shoulder surgery in 2017. Additionally, he reports a history of ear wax buildup, which was resolved with ear drops. 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 He attributes this to improper bending during training. Family history is significant for lung cancer and stroke in his father, who is currently under medical monitoring. His mother is in good health with no significant medical issues reported. [facility] Medical History Hypovitaminosis D Weight loss Abdominal pain Abdominal pain, generalized Encounter for physical examination Nausea Surgical History (Updated 05/23/25 @ 09:22 by Sole Pryor MD) History of bilateral carpal tunnel release History of anal fissures History of shoulder surgery Family History Father Cancer Lung cancer, Onset Age: 50 Stroke Mother No problems noted. Maternal Grandmother Diabetes Maternal Uncle Diabetes Social History Housing: House Alcohol intake: former Year quit: 2010 Patient Tobacco Use Status: Never used Tobacco e-Cigarette/Vaping Use: Never Used Second Hand Smoke Exposure: No Substance Use Type: Marijuana service: No Current occupational status: employed Current occupation: rt handed Cognitive needs: No Hearing needs: No Vision needs: No Questionnaire PHQ-9 Over the last 2 weeks, how often have you been bothered by any of the following problems? 1. Little interest or pleasure in doing things: not at all 2. Feeling down, depressed, or hopeless: not at all 3. Trouble falling or staying asleep, or sleeping too much: not at all 4. Feeling tired or having little energy: not at all 5. Poor appetite or overeating: not at all 6. Feeling bad about yourself - or that you are a failure or have let yourself or your family down: not at all 7. Trouble concentrating on things, such as reading the newspaper or watching television: not at all 8. Moving or speaking so slowly that other people could have noticed. Or the opposite - being so fidgety or restless that you have been moving around a lot more than usual: not at all 9. Thoughts that you would be better off or of hurting yourself in some way: not at all Total score: 0 Depression Screening Interpretation: Negative Depression Screening Done: Yes 77558 - PHQ-9 Billing: Yes Source: Developed by Drs. Ton Watson, Eulalia B.WBola Asher and colleagues, with an educational winston from [employer]. Thrive Questionnaire Date Thrive assessed: 05/22/25 I am a: Patient What is your living situation today?: I have a steady place to live Within the past 12 months, did the food you bought not last and you didn't have the money to get more?: Never true Within the past 12 months, did you worry whether your food would run out before you got money to buy more?: Never true Do you have trouble paying for medicines?: No Do you have trouble getting transportation to medical appointments?: No Do you have trouble paying your heating and electricity bill?: No Do you have trouble taking care of your child, family member or friend?: No Do you have trouble with day-to-day activities such as bathing, preparing meals, shopping, managing finances, etc.?: No Are you currently unemployed and looking for a job?: No Are you interested in more education?: I choose not to answer this question Please select the resources that you would like help with: None Currently or been in a relationship where the following occur: No concerns reported THRIVE Score: 0 AUDIT C Alcohol Use Questionnaire (AUDIT-C) 1. How often do you have a drink containing alcohol?: Never 3. How often do you have six or more drinks on one occasion?: Never Total Score: 0 Score Reviewed/Action Taken: No PATRIA-7 AMB Questionnaire PATRIA-7 Date PATRIA - 7 assessed: 02/27/24 Feeling nervous, anxious, or on edge: 0 = Not at all Not being able to stop or control worryin = Not at all Worrying too much about different things: 0 = Not at all Trouble relaxin = Not at all Being so restless that it is hard to sit still: 0 = Not at all Becoming easily annoyed or irritable: 0 = Not at all Feeling afraid as if something awful might happen: 0 = Not at all Total PATRIA-7 score (0-4 normal; 5-9 mild; 10-14 moderate; 15-21 severe): 0 Source: Developed by Drs. Ton Watson, Bola Harrison and colleagues, with an educational winston from [employer]. PATRIA-7 Assessment Billing PATRIA-7 Assessment Tool: PATRIA-7 Assessment 88478 Review of Systems Const All systems reviewed & are unremarkable except as noted in HPI and below Card Denies chest pain at rest, Denies chest pain with activity, Denies edema, Denies irregular heart rhythm, Denies claudication, Denies dyspnea, Denies dyspnea on exertion, Denies orthopnea, Denies paroxysmal nocturnal dyspnea and Denies slow heart rate Resp Denies cough, Denies dyspnea and Denies dyspnea on exertion Skin/Breast Denies bleeding lesions, Denies changing lesions and Denies rash Neuro Denies lack of coordination Physical exam (Primary Care) Vital Signs: Last Vital Signs Temp 97.3 F 05/23/25 08:59 Pulse 64 05/23/25 08:59 Resp 18 05/23/25 08:59 BP 102/64 05/23/25 08:59 Pulse Ox 98 05/23/25 08:59 Oxygen Delivery Method Room Air 05/23/25 08:59 BMI result Body Mass Index 20.3 Tobacco/Smoking Status: Tobacco use Status Tobacco use date assessed 05/23/25 05/23/25 09:08 Patient Tobacco Use Status Never used Tobacco 05/23/25 09:08 e-Cigarette/Vaping Use Never Used 05/23/25 09:08 PHQ-9: PHQ-9 Score PHQ-9: Total score 0 05/23/25 09:23 Depression Screening Interpretation: Negative Thrive Assessment: Date of Thrive Assessment Date Thrive assessed 05/22/25 05/23/25 09:08 Currently or been in a relationship where the following occur: No concerns reported HENWA Head: Yes normal to inspection, Yes normocephalic and Yes atraumatic Ears: external ears normal Eyes General: appearance normal, both eyes and all related structures Eyelids: Yes eyelids normal Conjunctivae: conjunctivae normal Neck Neck: Yes normal visual inspection and Yes supple Resp Effort & Inspection: normal respiratory effort Auscultation: clear to auscultation bilaterally Cardio Jugular venous distension: no JVD Rate: regular rate Rhythm: regular rhythm Heart sounds: S1 normal heart sound present and S2 normal heart sound present GI Inspection: Yes normal to inspection Palpation (GI): Soft to palpation and nontender Auscultation: normal bowel sounds Skin General skin exam: no rashes or lesions noted Neuro General: no focal motor deficits Extrem General: Yes full ROM Psych Appearance: grossly normal Immunizations Boostrix Tdap 2.5 Lf unit-8 mcg-5 Lf/0.5 mL intramuscular syringe Performing Provider: Sole Pryor MD [facility] Administered by: DARWIN Borden on 05/23/25 09:36 Dose Route Admin Location Dispensed Lot Number Expiration Date N[employer] Director 0.5 mL IM Left Deltoid 0.5 mL [id number] 06/12/27 [id number] Total Dispensed Waste 0.5 mL 0 % VIS Given Date VIS Provided VIS Publication Date 05/23/25 Single Vaccine 21 Eligibility Eligibility Date Funding Source Not [facility] Eligible 05/23/25 Private Coding Level of Care Code Est Pt Prev Care 18-39y(45684) Diagnoses Encounter for physical examination Z00.00 Additional Codes PHQ-9 - 27369 - PHQ-9 Billing: Yes ([id number]) PATRIA-7 Assessment Billing - PATRIA-7 Assessment Tool: PATRIA-7 Assessment 46021 ([id number]) Time Spent (min) 30 Assessment & Plan Assessment & Plan (1) Encounter for physical examination: Code(s): Z00.00 - Encounter for general adult medical examination without abnormal findings Category: Medical Plan Plan 1. Encounter for general adult medical examination without abnormal findings Z00.00 The patient is overdue for a tetanus vaccination, last received in 2012, and it is recommended every 10 years. The vaccine was offered during the visit to ensure continued protection against tetanus. Orders: Orders Lipid Panel Today Z00.00 - Encounter for general adult medical examination without abnormal findings Vitamin D 25-OH Total Today E55.9 - Vitamin D deficiency, unspecified Comprehensive [place]. Panel Fast Today Z00.00 - Encounter for general adult medical examination without abnormal findings TDaP Immunization Today Z23 - Encounter for immunization
--- OUTSIDE RECORDS SUMMARY | 2025-05-23 09:13 | XMS_ITS | Clinical Summary ---
Author Organization [employer] Address [address] [place] [address] [address] [place] [address] Care Team Providers Care Ballet Company Member Name Role Phone Unavailable Primary Care Provider Unavailabl e Allergies No known active allergies Medications cholecalciferol (Vitamin D-3) 50 MCG (2000 UT) capsule Active Sodium Fluoride (PreviDent 5000 Booster Plus) 1.1 % paste Please use pea size to brush teeth. Spit after brushing. Do not rinse. 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 (Primary Dx) 02/27/2025 Travel from Last 3 Months Social History Tobacco Use Types Packs/Day Years [...] Sign Reading Time Taken Comments Blood Pressure 120/80 02/28/2025 9:19 AM EDT Pulse 65 03/01/2024 9:02 AM EDT Temperature - - Respiratory Rate - - Oxygen Saturation - - Inhaled Oxygen Concentration - - Weight - - Height - - Body Mass Index - - Plan of Treatment Upcoming Encounters Date Type Department Care Team (Late st Contact Info) Description 07/25/2025 10:00 AM EST Office Visit [facility] ADULT DENTAL [address] [place] [address] Monica Parsons Health Maintenance Due Date Last Done Comments Depression Screening 1986 HIV Screening 1986 Lipid Panel 1986 SDOH Screening 1986 Disability Screening 1986 Alcohol/Substance Use Screening 1998 Family Planning (PISQ) 2001 HPV Vaccines (1 - Male 3-dose series) 2001 Hepatitis C Screening 2004 Hepatitis A Vaccines (1 of 2 - Risk 2-dose series) 2005 Hepatitis B Vaccines (1 of 3 - 19+ 3-dose series) 2005 DTaP/Tdap/Td Vaccines (2 - Td or Tdap) 01/09/2023 01/09/2013, 01/09/2013 COVID-19 Vaccine ( season) 2025 06/27/2022, 09/02/2021, 03/30/2021, Additional history exists Influenza Vaccine (#1) 2025 06/27/2022, 2016 Dental Oral Exam 07/25/2025 01/22/2025, , 05/11/2023, Additional history exists Dental Prophylaxis 07/25/2025 01/22/2025, 1 09/23/2023, 03/01/2024, Additional history exists Dental X-Ray: Bitewings 01/23/2026 01/23/20 25, 03/19/2024, 03/01/2024, Additional history exists Tobacco Screening 02/28/2026 02/28/2025 Dental X-Ray: Full Mouth 03/02/2027 03/01/2024, 12/13 Zoster Vaccines (1 of 2) 2036 RSV Patients and Patients Aged 60 years or older (1 - 1-dose 75+ series) 2061 HIB Vaccines Aged Out No longer eligi ble based on patient's age to complete this topic IPV Vaccines Aged Out No longer eligi ble based on patient's age to complete this topic Meningococcal B Vaccine Aged Out No l onger eligible based on patient's age to complete this topic Meningococcal Vaccine Aged Out No kuldip roel eligible based on patient's age to complete this topic Pneumococcal Vaccine: Pediatrics (0 to 5 Years) and At-Risk Patients (6 to 49) Years Aged Out No longer eligible based on patient's age to complete this topic RSV under 20 months Aged Out No longe r eligible based on patient's age to complete this topic Rotavirus Vaccines Aged Out No longer eligible based on patient's age to complete this topic Procedures Procedure Name Priority Date/Time Associated Diagnosis Comments CASE PRESENTATION, DETAILED AND EXTENSIVE TREATMENT PLANNING Routine 02/28/2025 9:00 AM EDT 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 29 MODL RESIN-BASED COMPOSITE - 4+ SURF, POSTERIOR Routine 02/28/2025 9:00 AM EDT 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 PROPHYLAXIS - ADULT Routine 01/22/2025 9 :00 AM EDT 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
--- OUTSIDE RECORDS SUMMARY | 2025-05-23 09:13 | XMS_ITS | Encounter Summary ---
Author Organization [email or web address] [facility] Address [address] [place] [address] [address] [place] [address] Care Team Providers Care Wild Life Manager Name Role Phone Unavailable Primary Care Provider Unavailabl e Encounter Details Date Type Department Care Team (Latest Contact Info) Description 10/12/2018 Abstract [facility] CONVERSIONS Dental, Provider, DDS Social History Tobacco Use Types Packs/Day Years Used Date Smoking Tobacco: Never Assessed Sex and Gender Information Value Date Recorded Sex Assigned at Male 06/13/2022 10:21 AM EDT Legal Sex Male 10:21 AM EDT Gender Identity Male 06/13/2022 10:21 AM EDT Sexual Orientation Straight 06/13/2022 10 :21 AM EDT documented as of this encounter Plan of Treatment Upcoming Encounters Date Type Department Care Team (Late st Contact Info) Description 07/25/2025 10:00 AM EST Office Visit [facility] ADULT [facility] [address] [place] [address] Monica Parsons documented as of this encounter Visit Diagnoses Not on filedocumented in this encounter
--- OUTSIDE RECORDS SUMMARY | 2025-05-23 09:13 | XMS_ITS | Encounter Summary ---
Author Organization [employer] [facility] Address [address] [place] [address] [address] [place] [address] Care Team Providers Care Radiagraph Operator Name Role Phone Unavailable Primary Care Provider Unavailabl e Encounter Details Date Type Department Care Team (Latest Contact Info) Description 11/15/2021 Abstract [facility] CONVERSIONS Dental, Provider, DDS Social History Tobacco [...] Description 07/25/2025 10:00 AM EST Office Visit [facility] [address] [place] [address] Monica Parsons documented as of this encounter Visit Diagnoses Not on filedocumented in this encounter
== END 2025-05-23 09:35 | disposition home or self-care (01) ==
LOC: HO.HMCH 08:52
PROVIDERS: PCP Internal Medicine; Visit Provider Internal Medicine
DX: Z23 Encounter for immunization (principal); Z00.00 Encounter for general adult medical examination without abnormal findings

== ENCOUNTER → 2025-05-23 08:52 | Outpatient (BNVA) | payer BC, SELFPAY | PROVIDERS: PCP Internal Medicine; Visit Provider Internal Medicine | DX: Z00.00 Encounter for general adult medical examination without abnormal findings (principal); Z23 Encounter for immunization; Z13.31 Encounter for screening for depression; Z91.040 Latex allergy status; Z80.1 Family history of malignant neoplasm of trachea, bronchus and lung; Z82.3 Family history of stroke | CPT/HCPCS: 90471; 90715; 96127 ==